=== PATIENT | male | born 1940 | race Hispanic/Latino ===

== ENCOUNTER 2017-05-03 10:51 | Inpatient (IN) | payer MEDICARE, BC ==
[~2017-05-03] VITALS: Ht 185.4 cm; Wt 95.0 kg
[~2017-05-03 10:51] MED LIST: DESMOPRESSIN A0.1 MG PO; FEROSUL325 MG PO; FOLBIC TABLET1 EACH PO; GABAPENTIN100 MG PO; HYDRALAZINE HCL25 MG PO; LISINOPRIL40 MG PO; LOPID600 MG PO; METOPROLOL TART50 MG PO; NAMENDA10 MG PO; OLANZAPINE20 MG PO; OMEPRAZOLE20 MG PO
[2017-05-03 16:17] LABS: BASOPHILS % 0.5 % (0.0-1.0); EOSINOPHILS # (AUTO) 0.4 (0.0-0.4); EOSINOPHILS % 5.1 % (0.0-6.0); HEMATOCRIT 28.7 % (38.2-49.6); HEMOGLOBIN 10.3 g/dL (14.0-18.0); LYMPHOCYTES # (AUTO) 1.9 (1.0-3.2); LYMPHOCYTES % 25.6 % (18.0-39.1); MEAN CORPUSCULAR HEMOGLOBIN 32.7 pg (28-32); MEAN CORPUSCULAR HGB CONC 35.9 g/dL (31-35); MEAN CORPUSCULAR VOLUME 91.1 fL (81-99); MONOCYTES # (AUTO) 0.9 (0.2-0.8); MONOCYTES % 11.9 % (4.4-11.3); NEUTROPHILS # (AUTO) 4.2 (2.1-6.9); NEUTROPHILS % 56.4 % (38.7-80.0); PLATELET COUNT 173 x10e3/uL (140-360); RED BLOOD COUNT 3.15 x10e6/uL (4.3-5.7); RED CELL DISTRIBUTION WIDTH 12.8 % (11.7-14.4)
[2017-05-03 16:41] LABS: CALCIUM 9.6 mg/dL (8.4-10.2); CREATININE, SERUM 1.31 mg/dL (0.72-1.25); MAGNESIUM 1.7 MG/DL (1.3-2.1)
[2017-05-03 18:42] LABS: BILIRUBIN,URINE NEGATIVE (NEGATIVE); CLARITY,URINE CLEAR (CLEAR); COLOR,URINE YELLOW (YELLOW); KETONES,URINE NEGATIVE (NEGATIVE); LEUKOCYTE ESTERASE ,URINE NEGATIVE (NEGATIVE); NITRITE,URINE NEGATIVE (NEGATIVE); PROTEIN,URINE DIPSTICK NEGATIVE (NEGATIVE); URINE UROBILINOGEN 0.2 mg/dL (0.2 - 1)
[2017-05-03 18:47] LABS: MUCUS,URINE MODERATE (RARE); RBC,URINE 0-5 /HPF (0-5); WBC,URINE (MAN) 0-5 /HPF (0-5)
[2017-05-03] MEDS ORDERED: ONDANSETRON HCL INJ 2 MG/ML VIAL IV PRN (20:00)
[2017-05-03] MEDS: SODIUM CHLORIDE 0.9% 1000ML 1,000 ML IV SCH (22:00)
[2017-05-04] VITALS (7 sets, daily range): BP systolic 104–151; BP diastolic 61–76
[2017-05-04] MEDS ORDERED: VITAMIN D1000 UNI1 PO (05:19)
[2017-05-04] MEDS ORDERED: VITAMIN B-121000 MC2 PO (05:19)
[2017-05-04 07:15] LABS: BASOPHILS % 0.5 % (0.0-1.0); EOSINOPHILS # (AUTO) 0.4 (0.0-0.4); EOSINOPHILS % 5.6 % (0.0-6.0); HEMATOCRIT 28.1 % (38.2-49.6); HEMOGLOBIN 9.9 g/dL (14.0-18.0); LYMPHOCYTES # (AUTO) 1.3 (1.0-3.2); LYMPHOCYTES % 19.6 % (18.0-39.1); MEAN CORPUSCULAR HEMOGLOBIN 32.6 pg (28-32); MEAN CORPUSCULAR HGB CONC 35.2 g/dL (31-35); MEAN CORPUSCULAR VOLUME 92.4 fL (81-99); MONOCYTES # (AUTO) 0.8 (0.2-0.8); MONOCYTES % 12.4 % (4.4-11.3); NEUTROPHILS # (AUTO) 3.9 (2.1-6.9); NEUTROPHILS % 61.3 % (38.7-80.0); PLATELET COUNT 150 x10e3/uL (140-360); RED BLOOD COUNT 3.04 x10e6/uL (4.3-5.7); RED CELL DISTRIBUTION WIDTH 13.1 % (11.7-14.4)
[2017-05-04 07:44] LABS: ALBUMIN 3.5 g/dL (3.5-5.0); ALBUMIN/GLOBULIN RATIO 0.9 (0.8-2.0); ANION GAP 11.4 mmol/L (8-16); CREATININE, SERUM 1.27 mg/dL (0.72-1.25); POTASSIUM 4.4 mmol/L (3.5-5.1)
[2017-05-04] MEDS: HYDRALAZINE HCL 25 MG TAB PO SCH ×2 (09:00→17:00)
[2017-05-04] MEDS: LISINOPRIL 20 MG TAB PO SCH (09:00)
[2017-05-04] MEDS: GEMFIBROZIL 600 MG TAB PO SCH ×2 (09:00→17:00)
[2017-05-04] MEDS: PANTOPRAZOLE SOD 40 MG TABEC PO SCH ×2 (09:00→17:00)
[2017-05-04] MEDS: MEMANTINE 10 MG TAB PO SCH ×2 (09:00→17:00)
[2017-05-04] MEDS: GABAPENTIN 100 MG CAP PO SCH (09:00)
[2017-05-04] MEDS: METOPROLOL TARTRATE 50 MG TAB PO SCH (09:00)
[2017-05-04] MEDS: SODIUM CHLORIDE 0.9% 1000ML 1,000 ML IV SCH (09:38)
[2017-05-05] VITALS (7 sets, daily range): BP systolic 121–146; BP diastolic 71–79
[2017-05-05] MEDS ORDERED: DDAVP 0.0110 MCG/0.1 (04:29)
[2017-05-05] MEDS: GABAPENTIN 100 MG CAP PO SCH (08:30)
[2017-05-05] MEDS: PANTOPRAZOLE SOD 40 MG TABEC PO SCH ×2 (08:30→17:00)
[2017-05-05] MEDS: HYDRALAZINE HCL 25 MG TAB PO SCH ×2 (08:30→17:00)
[2017-05-05] MEDS: LISINOPRIL 20 MG TAB PO SCH (08:30)
[2017-05-05] MEDS: GEMFIBROZIL 600 MG TAB PO SCH ×2 (08:35→17:00)
[2017-05-05] MEDS: METOPROLOL TARTRATE 50 MG TAB PO SCH (08:35)
[2017-05-05] MEDS: MEMANTINE 10 MG TAB PO SCH ×2 (08:35→17:00)
[2017-05-05 09:02] LABS: BASOPHILS % 0.5 % (0.0-1.0); EOSINOPHILS # (AUTO) 0.3 (0.0-0.4); HEMATOCRIT 29.7 % (38.2-49.6); HEMOGLOBIN 10.3 g/dL (14.0-18.0); LYMPHOCYTES # (AUTO) 1.1 (1.0-3.2); LYMPHOCYTES % 16.6 % (18.0-39.1); MEAN CORPUSCULAR HEMOGLOBIN 32.8 pg (28-32); MEAN CORPUSCULAR HGB CONC 34.7 g/dL (31-35); MEAN CORPUSCULAR VOLUME 94.6 fL (81-99); MONOCYTES # (AUTO) 0.5 (0.2-0.8); MONOCYTES % 8.1 % (4.4-11.3); NEUTROPHILS # (AUTO) 4.6 (2.1-6.9); NEUTROPHILS % 69.3 % (38.7-80.0); PLATELET COUNT 158 x10e3/uL (140-360); RED BLOOD COUNT 3.14 x10e6/uL (4.3-5.7); RED CELL DISTRIBUTION WIDTH 13.4 % (11.7-14.4)
[2017-05-05 09:28] LABS: ALANINE AMINOTRANSFERASE 19 IU/L (0-55); ALBUMIN 3.7 g/dL (3.5-5.0); ALBUMIN/GLOBULIN RATIO 0.9 (0.8-2.0); ALKALINE PHOSPHATASE 93 IU/L (40-150); ANION GAP 13.3 mmol/L (8-16); BLOOD UREA NITROGEN 23 mg/dL (7-26); BUN/CREATININE RATIO 16 (6-25); CALCIUM 9.7 mg/dL (8.4-10.2); CARBON DIOXIDE 26 mmol/L (22-29); CHLORIDE 100 mmol/L (98-107); CREATININE, SERUM 1.45 mg/dL (0.72-1.25); EST GLOMERULAR FILTRATION RATE 47 ML/MIN (60-); GLUCOSE 130 mg/dL (74-118); POTASSIUM 4.3 mmol/L (3.5-5.1); SODIUM 135 mmol/L (136-145)
[2017-05-06 01:28] VITALS: BP 129/78
[2017-05-06 04:00] VITALS: BP 158/87
[2017-05-06 08:30] VITALS: BP 137/76
[2017-05-06] MEDS: HYDRALAZINE HCL 25 MG TAB PO SCH (09:00)
[2017-05-06] MEDS: LISINOPRIL 20 MG TAB PO SCH (09:00)
[2017-05-06] MEDS: METOPROLOL TARTRATE 50 MG TAB PO SCH (09:00)
[2017-05-06] MEDS: MEMANTINE 10 MG TAB PO SCH (09:00)
[2017-05-06] MEDS: GEMFIBROZIL 600 MG TAB PO SCH (09:00)
[2017-05-06] MEDS: GABAPENTIN 100 MG CAP PO SCH (09:00)
[2017-05-06] MEDS: PANTOPRAZOLE SOD 40 MG TABEC PO SCH (09:00)
[2017-05-06 09:54] LABS: ANION GAP 14.4 mmol/L (8-16); CALCIUM 9.4 mg/dL (8.4-10.2); CREATININE, SERUM 1.7 mg/dL (0.72-1.25); POTASSIUM 4.4 mmol/L (3.5-5.1)
== END 2017-05-06 10:45 | disposition home or self-care (01) | DRG 645 ==
LOC: ER 10:51 → ERHOLD 21:20 → MED/SURG3 22:21
PROVIDERS: ADMIT Family Medicine; ATTEND Family Medicine
DX: E22.2 Syndrome of inappropriate secretion of antidiuretic hormone (principal); E11.40 Type 2 diabetes mellitus with diabetic neuropathy, unspecified; F03.90 Unspecified dementia, unspecified severity, without behavioral disturbance, psychotic disturbance, mood disturbance, and anxiety; D64.9 Anemia, unspecified; I12.9 Hypertensive chronic kidney disease with stage 1 through stage 4 chronic kidney disease, or unspecified chronic kidney disease; N18.3 Chronic kidney disease, stage 3 (moderate); D63.8 Anemia in other chronic diseases classified elsewhere; E23.2 Diabetes insipidus
CPT/HCPCS: 36415; 80048; 80053; 81001; 83735; 84100; 84443; 85025; 87086; 93005; 97139; 99284; J7030

== ENCOUNTER 2018-09-16 17:31 | Observation (INO) | payer MEDICARE, BC ==
[~2018-09-16] VITALS: Ht 185.4 cm; Wt 88.6 kg
[~2018-09-16 17:31] MED LIST changes: +DDAVP 0.0110 MCG/0.1; +VITAMIN B-121000 MC2 PO; +VITAMIN D1000 UNI1 PO
--- OUTSIDE RECORDS SUMMARY | 2018-09-16 17:36 | XMS REPORT ---
Author Author [facility] Address Unknown Phone Unavailable Care Team Providers Care Club Waiter/Waitress Name Role Phone [employer] Unavailable Unavailable Problems This patient has no known problems. Allergies, Adverse Reactions, Alerts This patient has no known allergies or adverse reactions. Medications This patient has no known medications. Results Test Description Test Time Test Comments Text Results Atomic Results Result Comments MRI SPINE CERVICAL WO [place] [address] Patient Name: AYO RUDOLPH MR #: [id number] : 1940 Age/Sex: 76/M Req #: [id number] Adm Physician: Ordered by: MARCUS BOYLE MD Report #: [id number] Location: MRI Room/Bed: Procedure: [id number] MRI/MRI SPINE CERVICAL WO Exam Date: Exam Time: REPORT STATUS: Signed EXAMINATION: MRI of the cervical spine without contrast HISTORY: Neck pain, cervical radiculopathy for the last week COMPARISON: None available TECHNIQUE: Sagittal T1, T2, STIR; axial T2, gradient echo. FINDINGS: Curvature: Normal lordosis. Vertebrae: No evidence of neoplasm, infection, or fracture. Foramen magnum: No mass, Chiari malformation, or basilar invagination. Spinal Cord: Normal size and signal intensity. Soft Tissues: Unremarkable. Degenerative changes: C1-C2: Unremarkable. C2-C3: Bilateral facet arthroses. No canal or foraminal stenoses. C3-C4: Asymmetric to the right small disc osteophyte, mild uncovertebral and facet arthrosis. Severe right foraminal stenosis. Compression upon the exiting right C4 nerve root cannot be excluded C4-C5: Small asym metrical right disc osteophyte, mild uncovertebral facet arthrosis. Moderate right foraminal stenoses. C5-C6: Small disc osteophyte, mild bilateral uncovertebral and facet arthrosis. Moderate bilateral foraminal stenosis. C6-C7: Disc osteophyte complex formation, bilateral uncovertebral and facet arthrosis. Moderate right and mild left foraminal stenoses. C7- T1: Unremarkable. IMPRESSION: 1. Mild multilevel spondylosis without spinal canal stenosis. 2. Severe degenerative foraminal stenosis on the right at C3-4 and moderate on the right at C4-C5 and C6-7 as well as bilaterally at C5-6. 3. Normal cervical spinal cord. Signed by: Dr. Ivan Szymanski M.D. on 01/24/2017 7:08 AM Dictated By: IVAN SZYMANSKI MD 7 Transcribed By: CELINE on 01/24/17707 COPY TO: MARCUS BOYLE MD
[2018-09-16] MEDS ORDERED: SODIUM CHLORIDE 0.9% 1000ML 1,000 ML IV SCH (18:30)
--- NOTE | 2018-09-16 18:49 | NUR ---
REPORT TO SENDY COYLE ALL QUESTIONS ANSWERED
[2018-09-16] MEDS: SODIUM CHLORIDE 0.9% 1000ML 1,000 ML IV SCH (19:27)
[2018-09-16] MEDS ORDERED: ONDANSETRON HCL INJ 2MG/ML 2ML 2 MG/ML VIAL IV PRN (19:30)
[2018-09-16 21:25] VITALS: BP 177/97
[2018-09-16] MEDS: HYDRALAZINE HCL 20 MG/ML VIAL IV PRN (22:02)
[2018-09-16 22:39] VITALS: BP 177/94
[2018-09-17] VITALS (7 sets, daily range): BP systolic 104–168; BP diastolic 63–80
[2018-09-17] MEDS: SODIUM CHLORIDE 0.9% 1000ML 1,000 ML IV SCH ×3 (04:26→20:17)
[2018-09-17] MEDS ORDERED: OLANZAPINE 20 MG PO SCH (06:30)
--- NOTE | 2018-09-17 07:08 | Diagnostic Imaging Report ---
Exam: Abdominal film Clinical History: Abdominal pain Comparison: None. DISCUSSION: The bowel gas pattern shows no dilated, air-filled loops of bowel. Gas and fecal material are noted throughout the large bowel. Round calcification projecting over the right lobe of the liver likely represents a calcified granuloma. Pelvic phleboliths. No suspicious calcifications project over the renal shadows or expected ureteral courses. Regional skeletal structures are intact with mild extra scoliotic curvature centered at L2-L3. Degenerative disc changes of the lumbar spine. Metallic clips project over the low pelvis. IMPRESSION: Nonobstructive bowel gas pattern. Signed by: Dr. Jake Guerrero M.D. on 09/17/2018 7:05 AM
--- NOTE | 2018-09-17 07:22 | Consultation ---
DATE OF CONSULTATION: 09/17/2018 HISTORY OF PRESENT ILLNESS: This is an 78-year-old gentleman, who supposedly was diagnosed with [facility]chalasia at the [facility], presented to the hospital because of difficulty swallowing. He apparently was eating some hamburger on Saturday and has been having some problem since then. He was able to toe up. He was able to eat Jell-O yesterday. He is not drooling. His other medical problem is supposedly again history of hypertension, history of atrial fibrillation, history of prostate cancer, history of schizophrenia, history of knee surgery, and apparently was diagnosed with achalasia recently. ALLERGIES: NONE. SOCIAL HISTORY: Denies any alcohol use. CURRENT MEDICATIONS: He is on olanzapine, lisinopril, desmopressin, is on pantoprazole, Lopressor, Namenda, Alprazolam, Lopid, and gabapentin. FAMILY HISTORY: Reviewed. REVIEW OF SYSTEMS: At this point, he denies any chest pain. Denies any shortness of breath. Denies any dysphagia or odynophagia. Does have dysphagia . Denies any nausea or vomiting. Denies any weight loss. Denies any abdominal pain or any kind of rectal bleeding. PHYSICAL EXAMINATION: GENERAL: The patient is awake, alert, appears to be stable . VITAL SIGNS: Afebrile currently with stable vital signs. HEAD, EYES, EARS, NOSE, AND THROAT: Normocephalic, atraumatic. Sclerae are anicteric. NECK: Supple. HEART: Sounds regular. ABDOMEN: Soft. There is no tenderness. SPINE: Nontender. EXTREMITIES: No cyanosis. No clubbing. LABORATORY VALUES: CBC was normal except hemoglobin of 11 and hematocrit of 33, and then CMP was normal except a BUN of 28 and creatinine is 1.4. IMPRESSION: 1. Dysphagia. The patient is supposed to have a history of achalasia, was diagnosed at the [facility]. 2. History of hypertension. 3. Atrial fibrillation. RECOMMENDATION: The patient is to keep n.p.o. for now. We will try to do an EGD either today or tomorrow with dilation and possibly Botox injections. We will try to get the results of the evaluations from the [facility]. MD INOCENTE Gilliam/MARTÍN /[id number] cc: Candelario Jimenez MD
[2018-09-17] MEDS: PANTOPRAZOLE SOD 40 MG TABEC PO SCH (07:30)
--- NOTE | 2018-09-17 07:31 | NUR ---
RECEIVED PATIENT AWAKE RESTING IN BED. NO SIGNS OF DISTRESS. BED LOW, WHEELS LOCKED, SIDE RAILS X2, CALL LIGHT IN REACH WILL CONTINUE TO MONITOR.
--- NOTE | 2018-09-17 07:47 | History and Physical ---
This is an 78-year-old gentleman with a history of achalasia, comes in with inability to swallow and has dysphagia to food including liquid and solids. HISTORY OF PRESENTING ILLNESS: Mr. Randell Barrios with a history of achalasia cardia, who has been treated by the [facility], has been seen by Dr. Rivas. The patient had been scoped by the [facility] and was scheduled for surgery, but apparently according to his primary care physician at the [facility], the surgery was canceled secondary to high risk. The patient continued to do the same after eating hamburger and the patient tried to push his food down with water and coffee, however, was not successful. The patient had signs of dehydration and also nausea and the patient came to the emergency room, was found to have dehydration, admitted to the hospital for dehydration and achalasia worsening. PAST MEDICAL HISTORY: 1. History of prostate cancer. 2. History of schizophrenia. 3. History of hypertension. 4. History of diabetes insipidus. PAST SURGICAL HISTORY: History of bilateral knee replacement and multiple scopes. SOCIAL HISTORY: No EtOH. No IV drug abuse and lives by himself and daughter lives very close by. REVIEW OF SYSTEMS: Negative for chest pain. Positive nausea and vomiting. No diarrhea. No constipation. No rectal bleeding. No hematochezia. No hematemesis. No diplopia. No blurry vision. No other neurological signs. The patient also complains of extreme fatigue for the last 2 days. MEDICINES: He takes at home are cholecalciferol 1000 units a day, cyanocobalamin B12 once a day, Desmopressin DDAVP 0.1 nasal sprays, desmopressin acetate 0.1 mg tablet daily, gabapentin 600 mg b.i.d., hydralazine 25 mg b.i.d., gemfibrozil 600 mg b.i.d., lisinopril 40 mg daily, Namenda 10 mg daily, metoprolol 50 mg daily, olanzapine 20 mg, and omeprazole 20 mg twice a day. PHYSICAL EXAMINATION: GENERAL: The patient is alert and oriented x3. VITAL SIGNS: Temperature 96.2, pulse of 87, respirations of 20, blood pressure is 143/63. HEENT: Normocephalic, atraumatic. The patient is edentulous. CVS: S1, S2 normal. Regular rate and rhythm. ABDOMEN: Nontender, nondistended. Bowel sounds markedly decreased. EXTREMITIES: No clubbing, no cyanosis, no edema. IMAGING: The patient has no imaging studies at this time. LABORATORY VALUES: From ER shows elevated creatinine. White count is 8.1, hemoglobin of 11.0, hematocrit of 33.0, platelet count is 175. Sodium 136, potassium of 4.2, chloride 94, glucose 98, BUN is 28 and 1.4 creatinine. T bili was 0.8. The patient's drug screen is negative and urine screen was negative. ASSESSMENT: 1. Achalasia cardia dysphagia. The patient has a consult with Dr. Rivas, we will probably scope him. 2. Dehydration. The patient is on IV fluids. We will continue monitoring his lytes. 3. History of anemia. We will continue to monitor his H and H. 4. History of diabetes insipidus. We will continue back on his desmopressin. 5. History of atrial fibrillation. We will continue monitoring the patient. The patient is currently not on anticoagulation. We will put him on Lovenox at this time for deep venous thrombosis prophylaxis. Further recommendation per clinical course. We will continue to monitor the patient. PLAN: To possibly do EGD and we will do KUB at this time too. Further recommendation per clinical course. MD SANDI Saab/MODL /[id number]
[2018-09-17] MEDS: MEMANTINE 10 MG TAB PO SCH ×2 (08:33→16:27)
[2018-09-17] MEDS: LISINOPRIL 20 MG TAB PO SCH (08:33)
[2018-09-17] MEDS: GEMFIBROZIL 600 MG TAB PO SCH ×2 (08:33→16:27)
[2018-09-17] MEDS: METOPROLOL TARTRATE 50 MG TAB PO SCH (08:33)
[2018-09-17] MEDS: HYDRALAZINE HCL 25 MG TAB PO SCH ×2 (08:33→16:27)
[2018-09-17] MEDS: GABAPENTIN 100 MG CAP PO SCH (08:33)
--- NOTE | 2018-09-17 15:05 | NUR ---
Nutrition Screen Note RD Recommendation for Physician: -When PO is feasible, rec ADAT to cardiac diet -If PO is not feasible, consider alternative nutrition Plan of Care: RD following, monitoring for tolerance and adequacy Nutrition reason for involvement: Nutrition Risk Trigger MST Primary Diagnose(s): dysphagia and dehydration PMH: achalasia, prostate cancer, schizophrenia, HTN, Afib Ht: 73in Wt: 195.25lb BMI: 25.8kg/m2 IBW: 184lb RD Assessment: (09/17) Chart reviewed. Labs and meds reviewed. 78yo M, who was admitted for dysphagia. Pt was dx with achalasia at the [facility] this year but no surgical intervention due to high risk. Visited pt in the room. Pt reported swallowing difficulty with foods and fluids, started 3 days ago. Pt hasnt eaten anything for the last 3 days. No complains of nausea or vomiting. Pt has his denture on bedside. Pt denied any recent weight loss with reported UBW ~195lbs. EGD pending. Will continue to monitor and follow. Current Diet: NPO Malnutrition Evaluation (09/17) The patient does not meet criteria for a specified degree of malnutrition at this time. Will re-evaluate at follow-up as appropriate. Diet Education Needs Assessment: Diet education not indicated. Nutrition Care Level: low Signed: Sigrid Mg, MS, RD, LD
[2018-09-17] MEDS: ENOXAPARIN SOD INJ 40 MG/0.4 ML SYR SC SCH (16:40)
--- NOTE | 2018-09-17 19:10 | NUR ---
received patient aaox3, stable condition, resting in bed. family member at bedside. no needs voiced. bed locked and in lowest position, call light within easy reach.
[2018-09-17] MEDS: OLANZAPINE 5 MG TAB PO SCH (19:29)
[2018-09-17] MEDS: DESMOPRESSIN ACETATE 0.2 MG TABLET PO SCH (19:29)
--- NOTE | 2018-09-17 23:30 | NUR ---
patient c/o chest tightness. EKG per protocol. called placed to Dr. Jimenez for orders, awaiting call back. patient is now denying anymore chest pain, discomfort, or tightness. will continue to monitor.
--- NOTE | 2018-09-17 23:52 | NUR ---
report given to oncoming nurse for continuity of care.
[2018-09-18] VITALS (10 sets, daily range): BP systolic 115–172; BP diastolic 66–89
[2018-09-18] MEDS: SODIUM CHLORIDE 0.9% 1000ML 1,000 ML IV SCH ×3 (00:33→19:00)
--- NOTE | 2018-09-18 00:34 | NUR ---
Patient denies chest pain at this time.
[2018-09-18 01:32] LABS: CREATINE KINASE MB 2.9 ng/mL (0-5.0)
[2018-09-18 05:44] LABS: BASOPHILS % 0.4 % (0.0-1.0); EOSINOPHILS % 0.5 % (0.0-6.0); HEMATOCRIT 31.2 % (38.2-49.6); HEMOGLOBIN 10.3 g/dL (14.0-18.0); LYMPHOCYTES % 12.7 % (18.0-39.1); MEAN CORPUSCULAR HEMOGLOBIN 31.9 pg (28-32); MEAN CORPUSCULAR VOLUME 96.6 fL (81-99); MONOCYTES # (AUTO) 0.8 (0.2-0.8); MONOCYTES % 10.1 % (4.4-11.3); NEUTROPHILS # (AUTO) 5.8 (2.1-6.9); NEUTROPHILS % 75.9 % (38.7-80.0); PLATELET COUNT 146 x10e3/uL (140-360); RED BLOOD COUNT 3.23 x10e6/uL (4.3-5.7); RED CELL DISTRIBUTION WIDTH 13.3 % (11.7-14.4)
[2018-09-18 05:52] LABS: INR 1.06; PROTHROMBIN TIME 14.3 seconds (11.9-14.5)
[2018-09-18 06:02] LABS: ALBUMIN 3.6 g/dL (3.5-5.0); ANION GAP 14.2 mmol/L (8-16); CALCIUM 9.4 mg/dL (8.4-10.2); CREATININE, SERUM 1.2 mg/dL (0.72-1.25); MAGNESIUM 2.1 MG/DL (1.3-2.1); POTASSIUM 4.2 mmol/L (3.5-5.1)
--- NOTE | 2018-09-18 06:13 | NUR ---
Dr. Jimenez made aware of patient's overnight chest pain episode.
--- NOTE | 2018-09-18 06:58 | Progress Note ---
DATE: SUBJECTIVE: The patient came in with dysphagia. The patient is due for EGD. The patient had some chest pain and symptoms of acute coronary syndrome. The patient's EKG was done which was normal and also troponins have been trended to be normal. The patient did have some food before that and the chest pain was substernal and related to food according to the patient. OBJECTIVE: VITAL SIGNS: Temperature 97.5, pulse of 84, respirations of 20, and blood pressure is 144/68. HEENT: Normocephalic and atraumatic. Pupils are reactive to light and accommodation. CVS: S1 and S2 normal. Regular rate and rhythm. ABDOMEN: Tender in the periumbilical area, also in epigastric area. EXTREMITIES: No clubbing, no cyanosis and/or no edema. LABORATORY VALUES: White count is 7.69, hemoglobin 10.3, and hematocrit 31.2. Chemistry; sodium of 141, potassium of 4.2, BUN 20, and creatinine of 1.30. As noted, troponin was 0.063. ASSESSMENT: 1. Achalasia, dysphagia. 2. Dehydration. 3. History of anemia. 4. History of diabetes insipidus and history of atrial fibrillation. PLAN: 1. To do EGD today with Dr. Rivas. 2. Dehydration has resolved. 3. Anemia. We will continue to monitor the patient. 4. For diabetes insipidus, we will continue back on desmopressin. Further recommendation per clinical course and possible discharge depending on the EGD result. MD SANDI Saab/MODL /[id number]
[2018-09-18] MEDS: PANTOPRAZOLE SOD 40 MG TABEC PO SCH (07:30)
--- NOTE | 2018-09-18 07:46 | NUR ---
RECEIVED PATIENT RESTING IN BED NO SIGNS OF DISTRESS. BED LOW, WHEELS LOCKED, SIDE RAILS X2. CALL LIGHT IN REACH. WILL CONTINUE TO MONITOR PATIENT.
[2018-09-18] MEDS: HYDRALAZINE HCL 25 MG TAB PO SCH ×2 (08:20→17:02)
[2018-09-18] MEDS: LISINOPRIL 20 MG TAB PO SCH (08:21)
[2018-09-18] MEDS: GABAPENTIN 100 MG CAP PO SCH (08:21)
[2018-09-18] MEDS: MEMANTINE 10 MG TAB PO SCH ×2 (08:21→17:02)
[2018-09-18] MEDS: METOPROLOL TARTRATE 50 MG TAB PO SCH (08:21)
[2018-09-18] MEDS: GEMFIBROZIL 600 MG TAB PO SCH ×2 (08:21→17:02)
[2018-09-18] MEDS: ENOXAPARIN SOD INJ 40 MG/0.4 ML SYR SC SCH (08:32)
--- NOTE | 2018-09-18 09:05 | NUR ---
PATIENT A/O X3, EVEN RESPIRATIONS UNLABORED. BOWEL SOUNDS ACTIVE, SKIN INTACT, NO EDEMA. PATIENT AMBULATORY WITH WALKER AND STANDBY ASSIST. NS @ 125 CC/HR LEFT WRIST 20 GAUGE IV. PATIENT NPO FOR EGD THIS AFTERNOON. VITAL SIGNS STABLE. CALL LIGHT IN REACH, WILL CONTINUE TO MONITOR PATIENT.
--- NOTE | 2018-09-18 13:19 | NUR ---
PATIENT LEFT FOR EGD AT THIS TIME VIA BED.
[2018-09-18] MEDS ORDERED: BOTULINUM TOXIN TYPE A 100 UNIT VIAL IM ONE (13:52)
--- NOTE | 2018-09-18 14:58 | NUR ---
PATIENT BACK FROM EGD AT THIS TIME. BED LOW, WHEELS LOCKED, SIDE RAILS X2. CALL LIGHT IN REACH. WILL CONTINUE TO MONITOR PATIENT.
[2018-09-18] MEDS ORDERED: PROPOFOL IV EMULSION 10 MG/ML 20 ML VIAL ONE (18:30)
[2018-09-18] MEDS: HYDRALAZINE HCL 20 MG/ML VIAL IV PRN (21:34)
[2018-09-18] MEDS: DESMOPRESSIN ACETATE 0.2 MG TABLET PO SCH (21:34)
[2018-09-18] MEDS: OLANZAPINE 5 MG TAB PO SCH (21:34)
[2018-09-19] MEDS: SODIUM CHLORIDE 0.9% 1000ML 1,000 ML IV SCH ×2 (03:17→11:17)
[2018-09-19 04:12] VITALS: BP 137/82
--- NOTE | 2018-09-19 05:46 | NUR ---
Dr. Evelyn brenner. advanced diet for breakfast.
--- NOTE | 2018-09-19 07:23 | Progress Note ---
DATE: SUBJECTIVE: The patient is an 78-year-old gentleman with a history of achalasia cardia. The patient had endoscopy yesterday. Botox was given. The patient's dysphagia is better. The patient is able to swallow food and also swallow liquids. The patient did have some symptoms of confusion this morning. Currently, the patient is asymptomatic. PHYSICAL EXAMINATION: VITAL SIGNS: Temperature is 98.1, pulse of 112, respirations of 20, blood pressure is 137/82, and pulse oximetry of 97% on room air. HEENT: Normocephalic and atraumatic. CVS: S1, S2 normal. Regular rate and rhythm. ABDOMEN: Nontender and nondistended. EXTREMITIES: No clubbing, no cyanosis, no edema. LABORATORY VALUES: All within normal limits. Coags normal. ASSESSMENT: 1. Achalasia cardia, status post dilatation and Botox injection. 2. Dehydration, resolved. 3. Anemia. Continue monitoring the patient. 4. Diabetes insipidus. Continue desmopressin. 5. Confusion, status post surgery. 6. Delirium/encephalopathy. PLAN: Continue the patient physical therapy today and once the patient is able to walk and continued to be ambulatory, the patient can be discharged home. As I mentioned to the daughter and the patient will be continued to be monitored. Addendum: The patient might need a myotomy later if the dilatation did not work. MD FERNANDO SaabJ/MODL /[id number]
[2018-09-19] MEDS: PANTOPRAZOLE SOD 40 MG TABEC PO SCH (07:30)
--- NOTE | 2018-09-19 07:31 | NUR ---
REPORT GIVEN TO ONCOMING NURSE. PATIENT IN STABLE CONDITION. CALL LIGHT WITHIN REACH.
[2018-09-19 08:33] VITALS: BP 138/84
[2018-09-19] MEDS: GABAPENTIN 100 MG CAP PO SCH (09:00)
[2018-09-19] MEDS: LISINOPRIL 20 MG TAB PO SCH (09:00)
[2018-09-19] MEDS: MEMANTINE 10 MG TAB PO SCH (10:00)
[2018-09-19] MEDS: HYDRALAZINE HCL 25 MG TAB PO SCH (10:00)
[2018-09-19] MEDS: GEMFIBROZIL 600 MG TAB PO SCH (10:00)
[2018-09-19] MEDS: METOPROLOL TARTRATE 50 MG TAB PO SCH (10:00)
[2018-09-19] MEDS: ENOXAPARIN SOD INJ 40 MG/0.4 ML SYR SC SCH (10:00)
--- NOTE | 2018-09-19 10:00 | NUR ---
HOME MEDICATIONS CLARIFIED WITH PT AND FAMILY, EMAR AND HOME MEDICATION LIST CLARIFIED IN COMPUTER
--- NOTE | 2018-09-19 10:22 | NUR ---
WITH STANDBY ASSIST OF PCT AND USE OF WALKER, PT OOB TO BR, CALL STRING WITHIN REACH
[2018-09-19 11:14] VITALS: BP 138/84
[2018-09-19 12:01] VITALS: BP 133/69
[2018-09-19] MEDS ORDERED: METHOCARBAMOL 500 MG TAB PO NR (12:45)
--- NOTE | 2018-09-19 13:30 | NUR ---
CM SPOKE TO PATIENT AT BEDSIDE. PATIENT INFORMED WITH PHYSICAL THERAPY RECOMMENDATIONS FOR POSSIBLE HOME HEALTH AT HOME. PATIENT STATES HE IS ABLE TO WALK AT HOME AND REFUSED HOME HEALTH SERVICES AT THIS TIME. PATIENT IS ENCOURAGED TO CONTACT HIS PRIMARY CARE PHYSICIAN IF HE GOES HOME AND FEELS HE CAN BENEFIT FROM PHYSICAL THERAPY SERVICES. BEDSIDE NURSE GERRI UPDATED ON PATIENT REFUSAL FOR HOME HEALTH AT THIS TIME.
[2018-09-19 16:28] VITALS: BP 139/80
--- NOTE | 2018-09-19 18:53 | NUR ---
DISCHARGE INSTRUCTIONS REVIEWED WITH PT, WHEELED OFF UNIT FOR DISCHARGE, NO CHANGE IN CONDITION
[2018-09-19] MEDS ORDERED: MEMANTINE 10 MG TAB PO SCH (21:00)
[2018-09-19] MEDS ORDERED: GEMFIBROZIL 600 MG TAB PO SCH (21:00)
[2018-09-19] MEDS ORDERED: HYDRALAZINE HCL 25 MG TAB PO SCH (21:00)
[2018-09-19] MEDS ORDERED: METOPROLOL TARTRATE 50 MG TAB PO SCH (21:00)
== END 2018-09-19 19:20 | disposition home or self-care (01) ==
LOC: FSED 17:31 → ERHOLD 19:18 → MED/SURG 20:34
PROVIDERS: ADMIT Family Medicine; ATTEND Family Medicine
DX: K22.0 Achalasia of cardia (principal); R13.10 Dysphagia, unspecified; E86.0 Dehydration; Z88.5 Allergy status to narcotic agent; I10 Essential (primary) hypertension; I48.91 Unspecified atrial fibrillation; F20.9 Schizophrenia, unspecified; Z85.46 Personal history of malignant neoplasm of prostate; E23.2 Diabetes insipidus; K44.9 Diaphragmatic hernia without obstruction or gangrene; D64.9 Anemia, unspecified; R07.89 Other chest pain; G93.40 Encephalopathy, unspecified
CPT/HCPCS: 36415; 43236; 43239; 43450; 74018; 80053; 82550; 82553; 83735; 84484; 85025; 85610; 88305; 88312; 93005 ×2; 97116; 97161; 97530; 99284; G0378 ×4; J0360 ×2; J0587; J1650 ×3; J2405 ×2; J2704; J7030 ×4

== ENCOUNTER 2019-02-25 20:37 | Emergency (ER) | payer MEDICARE, BC ==
[~2019-02-25] VITALS: Ht 185.4 cm; Wt 90.3 kg
[2019-02-25] MEDS ORDERED: GLUCAGON FOR INJ 1 MG VIAL IV ONE (21:00)
[2019-02-25 21:14] LABS: BASOPHILS % 0.4 % (0.0-1.0); EOSINOPHILS # (AUTO) 0.4 (0.0-0.4); HEMATOCRIT 33.1 % (38.2-49.6); HEMOGLOBIN 10.8 g/dL (14.0-18.0); LYMPHOCYTES # (AUTO) 1.1 (1.0-3.2); LYMPHOCYTES % 16.1 % (18.0-39.1); MEAN CORPUSCULAR HEMOGLOBIN 31.3 pg (28-32); MEAN CORPUSCULAR HGB CONC 32.6 g/dL (31-35); MEAN CORPUSCULAR VOLUME 95.9 fL (81-99); MONOCYTES # (AUTO) 0.8 (0.2-0.8); MONOCYTES % 12.1 % (4.4-11.3); NEUTROPHILS # (AUTO) 4.6 (2.1-6.9); NEUTROPHILS % 66.1 % (38.7-80.0); PLATELET COUNT 193 x10e3/uL (140-360); RED BLOOD COUNT 3.45 x10e6/uL (4.3-5.7); RED CELL DISTRIBUTION WIDTH 13.4 % (11.7-14.4)
[2019-02-25 21:30] LABS: ALANINE AMINOTRANSFERASE 11 IU/L (0-55); ALBUMIN 3.9 g/dL (3.5-5.0); ALKALINE PHOSPHATASE 97 IU/L (40-150); ANION GAP 18.2 mmol/L (8-16); BLOOD UREA NITROGEN 23 mg/dL (7-26); BUN/CREATININE RATIO 14 (6-25); CALCIUM 10.4 mg/dL (8.4-10.2); CARBON DIOXIDE 24 mmol/L (22-29); CHLORIDE 94 mmol/L (98-107); CREATINE KINASE 63 IU/L (30-200); CREATININE, SERUM 1.65 mg/dL (0.72-1.25); EST GLOMERULAR FILTRATION RATE 40 ML/MIN (60-); GLUCOSE 131 mg/dL (74-118); POTASSIUM 4.2 mmol/L (3.5-5.1); SODIUM 132 mmol/L (136-145)
--- NOTE | 2019-02-25 23:30 | Diagnostic Imaging Report ---
EXAMINATION: CHEST 2 VIEWS INDICATION: Dysphagia, achalasia COMPARISON: Abdominal radiograph 09/17/2018 FINDINGS: PA and lateral views TUBES and LINES: None. LUNGS: Lungs are well inflated. No consolidations. Mild bilateral central bronchial wall thickening. PLEURA: No pleural effusion or pneumothorax. HEART AND MEDIASTINUM: The cardiomediastinal silhouette is not enlarged. Soft tissue dense fullness in the lower mediastinum.. The aorta is tortuous, ectatic with atherosclerotic calcifications. The thoracic aorta is prominent. BONES AND SOFT TISSUES: No acute osseous lesion. Soft tissues are unremarkable. Degenerative changes in the spine. UPPER ABDOMEN: No free air under the diaphragm. IMPRESSION: Soft tissue dense fullness in the lower mediastinum is similar compared to 09/17/2018, and can be due to a distended lower esophagus as seen with achalasia. Findings of bronchitis. Tortuous ectatic thoracic aorta with thoracic aortic calcifications. Signed by: Femi Guzman DO on 02/25/2019 11:26 PM
[2019-02-25 23:54] VITALS: BP 158/79
== END 2019-02-25 23:55 | disposition home or self-care (01) ==
LOC: ER 20:37
DX: R09.89 Other specified symptoms and signs involving the circulatory and respiratory systems (principal); R13.14 Dysphagia, pharyngoesophageal phase
CPT/HCPCS: 36415; 71046; 80053; 82550; 82553; 84484; 85025; 93005; 99283; J1610

== ENCOUNTER → 2019-12-28 | Outpatient (CLI) | payer MEDICARE, BC ==
--- NOTE | 2019-12-28 15:08 | Diagnostic Imaging Report ---
History: Dizziness and giddiness Comparison studies: None Technique: Sagittal and axial T2 FS, axial DWI, axial T2*GRE, axial T1 FLAIR and axial coronal T2 FLAIR. Intravenous contrast: None Findings: Scalp: Normal in signal. No masses. Bone marrow: Normal in signal intensity. Brain sulci: Moderately from. Ventricles: Moderate compensatory dilatation. No hydrocephalus. Extra axial spaces: No mass, no fluid collection. Parenchyma: No mass, hemorrhage or acute or chronic cortical insults. A few scattered small T2 FLAIR hyperintense foci in the supratentorial white matter are nonspecific but are most compatible with chronic microvascular ischemic changes. Mild age-related confluent T2 FLAIR hyperintensity present along the ventricular margins. Suprasellar region: No abnormalities. Craniocervical junction: Patent foramen magnum. No Chiari malformation. Vessels: Normal flow-voids in the arteries and sinuses. Incidental findings: Scattered nonspecific mucosal thickening in the paranasal sinuses with small retention cysts in the bilateral maxillary and right sphenoid sinuses. IMPRESSION: No acute intracranial abnormalities. Chronic findings: 1. Moderate generalized parenchymal volume loss. 2. Mild microvascular ischemic changes. Signed by: Dr. Jake Nino M.D. on 12/28/2019 3:05 PM
== END ==
LOC: MRI 13:43
PROVIDERS: ATTEND Family Medicine
DX: R42 Dizziness and giddiness (principal); I65.23 Occlusion and stenosis of bilateral carotid arteries
CPT/HCPCS: 70551; 93880

== ENCOUNTER 2020-11-26 11:18 | Inpatient (IN) | payer MEDICARE, BC ==
[~2020-11-26] VITALS: Ht 185.4 cm; Wt 93.0 kg
[~2020-11-26 11:18] MED LIST changes: -DDAVP 0.0110 MCG/0.1; +DDAVP 0.0110 MCG/0.1 IH
[2020-11-26 12:07] LABS: BASOPHILS % 0.3 % (0.0-1.0); EOSINOPHILS # (AUTO) 0.3 (0.0-0.4); EOSINOPHILS % 5.1 % (0.0-6.0); HEMATOCRIT 30.1 % (38.2-49.6); HEMOGLOBIN 9.7 g/dL (14.0-18.0); LYMPHOCYTES # (AUTO) 1.1 (1.0-3.2); LYMPHOCYTES % 19.3 % (18.0-39.1); MEAN CORPUSCULAR HEMOGLOBIN 31.5 pg (28-32); MEAN CORPUSCULAR HGB CONC 32.2 g/dL (31-35); MEAN CORPUSCULAR VOLUME 97.7 fL (81-99); MONOCYTES # (AUTO) 0.6 (0.2-0.8); MONOCYTES % 10.3 % (4.4-11.3); NEUTROPHILS # (AUTO) 3.8 (2.1-6.9); NEUTROPHILS % 64.8 % (38.7-80.0); PLATELET COUNT 194 x10e3/uL (140-360); RED BLOOD COUNT 3.08 x10e6/uL (4.3-5.7); RED CELL DISTRIBUTION WIDTH 13.1 % (11.7-14.4)
[2020-11-26 12:22] LABS: ALBUMIN 3.7 g/dL (3.5-5.0); ANION GAP 13.4 mmol/L (8-16); CALCIUM 9.2 mg/dL (8.4-10.2); CREATININE, SERUM 1.48 mg/dL (0.72-1.25); MAGNESIUM 2.1 MG/DL (1.3-2.1); POTASSIUM 4.4 mmol/L (3.5-5.1)
[2020-11-26 12:32] LABS: CREATINE KINASE MB 1.1 ng/mL (0-5.0)
[2020-11-26] MEDS ORDERED: ONDANSETRON HCL INJ 2MG/ML 2ML 2 MG/ML VIAL IV PRN (13:30)
[2020-11-26 16:36] VITALS: BP 146/92
[2020-11-26] MEDS: SODIUM CHLORIDE 0.9% 1000ML 1,000 ML IV SCH ×2 (16:44→23:30)
[2020-11-26] MEDS ORDERED: BISACODYL5 MG PO (17:56)
[2020-11-26] MEDS ORDERED: LYRICA25 MG PO (17:56)
[2020-11-26] MEDS ORDERED: FEROSUL325 MG PO (17:56)
[2020-11-26] MEDS ORDERED: ATORVASTATIN CA10 MG PO (17:56)
[2020-11-26] MEDS ORDERED: METAMUCIL FIBE3.4 GM PO (17:56)
[2020-11-26 19:49] VITALS: BP 138/80
[2020-11-26 20:18] VITALS: BP 138/80
[2020-11-26 20:43] VITALS: BP 138/80
[2020-11-26 21:53] LABS: CREATINE KINASE MB 1.1 ng/mL (0-5.0)
[2020-11-27] VITALS (8 sets, daily range): BP systolic 131–165; BP diastolic 68–79
[2020-11-27 07:06] LABS: BASOPHILS % 0.6 % (0.0-1.0); EOSINOPHILS # (AUTO) 0.4 (0.0-0.4); EOSINOPHILS % 8.2 % (0.0-6.0); HEMATOCRIT 30.4 % (38.2-49.6); HEMOGLOBIN 9.8 g/dL (14.0-18.0); LYMPHOCYTES % 20.1 % (18.0-39.1); MEAN CORPUSCULAR HEMOGLOBIN 31.7 pg (28-32); MEAN CORPUSCULAR HGB CONC 32.2 g/dL (31-35); MEAN CORPUSCULAR VOLUME 98.4 fL (81-99); MONOCYTES # (AUTO) 0.6 (0.2-0.8); MONOCYTES % 13.5 % (4.4-11.3); NEUTROPHILS # (AUTO) 2.7 (2.1-6.9); NEUTROPHILS % 57.4 % (38.7-80.0); PLATELET COUNT 171 x10e3/uL (140-360); RED BLOOD COUNT 3.09 x10e6/uL (4.3-5.7)
[2020-11-27 07:46] LABS: ALBUMIN 3.5 g/dL (3.5-5.0); ANION GAP 14.1 mmol/L (8-16); CALCIUM 9.1 mg/dL (8.4-10.2); CREATININE, SERUM 1.23 mg/dL (0.72-1.25); POTASSIUM 4.1 mmol/L (3.5-5.1)
[2020-11-27 08:03] LABS: CREATINE KINASE MB 1.1 ng/mL (0-5.0)
[2020-11-27] MEDS: SODIUM CHLORIDE 0.9% 1000ML 1,000 ML IV SCH ×2 (08:15→19:30)
[2020-11-27] MEDS: FERROUS SULFATE 325 MG TAB PO SCH (11:19)
[2020-11-27] MEDS: METOPROLOL TARTRATE 25 MG TAB PO SCH ×2 (11:19→21:00)
[2020-11-27] MEDS: PANTOPRAZOLE SOD 40 MG TABEC PO SCH (16:37)
[2020-11-27] MEDS: MEMANTINE 10 MG TAB PO SCH (16:37)
[2020-11-27] MEDS: HYDRALAZINE HCL 25 MG TAB PO SCH (16:37)
[2020-11-27] MEDS ORDERED: OLANZAPINE 5 MG TAB PO SCH (21:00)
[2020-11-27] MEDS ORDERED: ATORVASTATIN 10 MG TAB PO SCH (21:00)
[2020-11-27] MEDS ORDERED: DESMOPRESSIN INH SCH (21:00)
[2020-11-28] VITALS: BP 133/69
[2020-11-28 04:00] VITALS: BP 141/69
[2020-11-28 05:00] LABS: BASOPHILS % 0.2 % (0.0-1.0); EOSINOPHILS # (AUTO) 0.3 (0.0-0.4); EOSINOPHILS % 3.6 % (0.0-6.0); HEMATOCRIT 29.2 % (38.2-49.6); HEMOGLOBIN 9.6 g/dL (14.0-18.0); LYMPHOCYTES % 12.2 % (18.0-39.1); MEAN CORPUSCULAR HGB CONC 32.9 g/dL (31-35); MEAN CORPUSCULAR VOLUME 97.3 fL (81-99); MONOCYTES # (AUTO) 0.7 (0.2-0.8); MONOCYTES % 8.4 % (4.4-11.3); NEUTROPHILS # (AUTO) 6.1 (2.1-6.9); NEUTROPHILS % 75.2 % (38.7-80.0); PLATELET COUNT 171 x10e3/uL (140-360); RED CELL DISTRIBUTION WIDTH 12.9 % (11.7-14.4)
[2020-11-28 05:23] LABS: ALBUMIN 3.2 g/dL (3.5-5.0); CALCIUM 8.5 mg/dL (8.4-10.2); CREATININE, SERUM 1.16 mg/dL (0.72-1.25)
[2020-11-28] MEDS: SODIUM CHLORIDE 0.9% 1000ML 1,000 ML IV SCH ×2 (05:30→15:30)
[2020-11-28] MEDS ORDERED: BOTULINUM TOXIN TYPE A 100 UNIT VIAL IM ONE (07:08)
[2020-11-28 07:58] VITALS: BP 122/66
[2020-11-28] MEDS: PANTOPRAZOLE SOD 40 MG TABEC PO SCH (08:36)
[2020-11-28] MEDS: MEMANTINE 10 MG TAB PO SCH ×2 (08:37→16:12)
[2020-11-28] MEDS: FERROUS SULFATE 325 MG TAB PO SCH (08:37)
[2020-11-28] MEDS: HYDRALAZINE HCL 25 MG TAB PO SCH ×2 (08:37→16:12)
[2020-11-28 08:41] VITALS: BP 121/66
[2020-11-28] MEDS ORDERED: PREGABALIN 25 MG CAP PO SCH (09:00)
[2020-11-28] MEDS ORDERED: CYANOCOBALAMIN 1,000 MCG TAB PO SCH (09:00)
[2020-11-28] MEDS: METOPROLOL TARTRATE 25 MG TAB PO SCH (11:18)
[2020-11-28 11:31] VITALS: BP 109/63
[2020-11-28 15:43] VITALS: BP 137/70
[2020-11-28] MEDS ORDERED: PROPOFOL IV EMULSION 10 MG/ML 20 ML VIAL ONE (19:26)
[2020-11-28] MEDS ORDERED: LIDOCAINE HCL 2% LOCAL INJ 5 ML SDV VIAL INJ ONE (19:26)
== END 2020-11-28 18:53 | disposition home or self-care (01) | DRG 392 ==
LOC: ER 12:09 → ERHOLD 13:20 → MED/SURG 16:08
PROVIDERS: ADMIT Family Medicine; ATTEND Family Medicine
PROC: 0DB78ZX Excision of Stomach, Pylorus, Via Natural or Artificial Opening Endoscopic, Diagnostic (ICD-10-PCS; 2020-11-28)
PROC: 0D738ZZ Dilation of Lower Esophagus, Via Natural or Artificial Opening Endoscopic (ICD-10-PCS; 2020-11-28)
PROC: 3E0G8GC Introduction of Other Therapeutic Substance into Upper GI, Via Natural or Artificial Opening Endoscopic (ICD-10-PCS; principal; 2020-11-28 07:00)
DX: K22.0 Achalasia of cardia (principal); N17.9 Acute kidney failure, unspecified; I12.9 Hypertensive chronic kidney disease with stage 1 through stage 4 chronic kidney disease, or unspecified chronic kidney disease; N18.9 Chronic kidney disease, unspecified; K44.9 Diaphragmatic hernia without obstruction or gangrene; K29.70 Gastritis, unspecified, without bleeding; D64.9 Anemia, unspecified; I48.91 Unspecified atrial fibrillation; Z79.01 Long term (current) use of anticoagulants; I10 Essential (primary) hypertension; Z20.822 Contact with and (suspected) exposure to COVID-19
CPT/HCPCS: 36415; 43239; 71045; 80053; 82550; 82553; 83735; 83880; 84484; 85025; 88305; 88312; 93005; 99284; J0587; J2001; J7030; U0002

== ENCOUNTER 2021-01-17 11:27 | Inpatient (IN) | payer MEDICARE, BC ==
[~2021-01-17] VITALS: Ht 185.4 cm; Wt 93.0 kg
[~2021-01-17 11:27] MED LIST changes: +ATORVASTATIN CA10 MG PO; +BISACODYL5 MG PO; +LYRICA25 MG PO; +METAMUCIL FIBE3.4 GM PO
[2021-01-17 12:22] LABS: BASOPHILS % 0.3 % (0.0-1.0); EOSINOPHILS % 0.1 % (0.0-6.0); HEMATOCRIT 30.3 % (38.2-49.6); HEMOGLOBIN 9.4 g/dL (14.0-18.0); LYMPHOCYTES # (AUTO) 0.7 (1.0-3.2); LYMPHOCYTES % 10.3 % (18.0-39.1); NEUTROPHILS # (AUTO) 5.2 (2.1-6.9); PLATELET COUNT 112 x10e3/uL (140-360); RED BLOOD COUNT 3.03 x10e6/uL (4.3-5.7); RED CELL DISTRIBUTION WIDTH 14.1 % (11.7-14.4)
[2021-01-17 12:32] LABS: BACTERIA,URINE FEW /HPF; CLARITY,URINE SL CLOUDY (CLEAR); COLOR,URINE YELLOW (YELLOW); KETONES,URINE NEGATIVE (NEGATIVE); LEUKOCYTE ESTERASE ,URINE LARGE (NEGATIVE); NITRITE,URINE NEGATIVE (NEGATIVE); PROTEIN,URINE DIPSTICK 1+ (NEGATIVE); URINE UROBILINOGEN 0.2 mg/dL (0.2 - 1)
[2021-01-17 12:44] LABS: ALBUMIN 3.4 g/dL (3.5-5.0); ALBUMIN/GLOBULIN RATIO 0.9 (0.8-2.0); ALKALINE PHOSPHATASE 61 IU/L (40-150); ANION GAP 18.8 mmol/L (8-16); BLOOD UREA NITROGEN 59 mg/dL (7-26); BUN/CREATININE RATIO 27 (6-25); CALCIUM 8.6 mg/dL (8.4-10.2); CARBON DIOXIDE 20 mmol/L (22-29); CHLORIDE 103 mmol/L (98-107); CREATININE, SERUM 2.15 mg/dL (0.72-1.25); EST GLOMERULAR FILTRATION RATE 30 ML/MIN (60-); GLUCOSE 96 mg/dL (74-118); POTASSIUM 3.8 mmol/L (3.5-5.1); SODIUM 138 mmol/L (136-145)
[2021-01-17 12:51] LABS: ALANINE AMINOTRANSFERASE < 6 IU/L (0-55)
[2021-01-17] MEDS ORDERED: CEFTRIAXONE 1 GM VIAL IV ONE (14:45)
[2021-01-17] MEDS: SODIUM CHLORIDE 0.9% 1000ML 1,000 ML IV SCH ×2 (15:04→18:06)
[2021-01-17] MEDS ORDERED: CEFTRIAXONE 1 GM VIAL ONE (15:12)
[2021-01-17] MEDS ORDERED: CEFTRIAXONE 1 GM in SODIUM CHLORIDE 0.9% 50ML 50 ML IV SCH (15:15)
[2021-01-17 18:13] VITALS: BP 110/64
[2021-01-17 20:08] VITALS: BP 127/74
[2021-01-18] VITALS (8 sets, daily range): BP systolic 112–142; BP diastolic 63–86
[2021-01-18 05:07] LABS: BASOPHILS % 0.2 % (0.0-1.0); EOSINOPHILS % 0.3 % (0.0-6.0); HEMATOCRIT 27.3 % (38.2-49.6); HEMOGLOBIN 8.5 g/dL (14.0-18.0); LYMPHOCYTES # (AUTO) 0.6 (1.0-3.2); LYMPHOCYTES % 10.1 % (18.0-39.1); MEAN CORPUSCULAR HEMOGLOBIN 31.5 pg (28-32); MEAN CORPUSCULAR HGB CONC 31.1 g/dL (31-35); MEAN CORPUSCULAR VOLUME 101.1 fL (81-99); MONOCYTES # (AUTO) 0.9 (0.2-0.8); MONOCYTES % 15.8 % (4.4-11.3); NEUTROPHILS # (AUTO) 4.3 (2.1-6.9); NEUTROPHILS % 73.1 % (38.7-80.0); PLATELET COUNT 92 x10e3/uL (140-360); RED CELL DISTRIBUTION WIDTH 14.1 % (11.7-14.4)
[2021-01-18 05:22] LABS: ANION GAP 14.4 mmol/L (8-16); CALCIUM 8.2 mg/dL (8.4-10.2); CREATININE, SERUM 1.89 mg/dL (0.72-1.25); POTASSIUM 3.4 mmol/L (3.5-5.1)
[2021-01-18] MEDS ORDERED: BISACODYL 5 MG TAB EC PO PRN (08:15)
[2021-01-18] MEDS: CYANOCOBALAMIN 100 MCG TAB PO SCH (09:00)
[2021-01-18] MEDS: FERROUS SULFATE 325 MG TAB PO SCH (09:16)
[2021-01-18] MEDS: PIPERACILLIN/TAZOBACTAM 2.25 GM in SODIUM CHLORIDE 0.9% 50ML 50 ML IV SCH ×3 (09:19→21:00)
[2021-01-18] MEDS: POTASSIUM CHLORIDE 20 MEQ TAB CR PO SCH ×2 (09:19→11:17)
[2021-01-18] MEDS: GEMFIBROZIL 600 MG TAB PO SCH ×2 (09:20→16:02)
[2021-01-18] MEDS: MEMANTINE 10 MG TAB PO SCH ×2 (09:20→16:02)
[2021-01-18] MEDS: PANTOPRAZOLE SOD 40 MG TABEC PO SCH ×2 (11:34→16:02)
[2021-01-18] MEDS: SODIUM CHLORIDE 0.9% 1000ML 1,000 ML IV SCH ×2 (13:08→21:33)
[2021-01-18 18:33] LABS: % IRON SATURATION 5 % (15-50); IRON 12 ug/dL (65-175); TOTAL IRON BINDING CAPACITY 224 ug/dL (261-478); TRANSFERRIN 160 mg/dL (174-364)
[2021-01-18] MEDS ORDERED: IRON SUCROSE 100 MG in SODIUM CHLORIDE 0.9% 100 ML 100 ML IV SCH (20:00)
[2021-01-18] MEDS ORDERED: DESMOPRESSIN ACETATE 5 ML SPRAY NS SCH (21:00)
[2021-01-18] MEDS ORDERED: ATORVASTATIN 10 MG TAB PO SCH (21:00)
[2021-01-18] MEDS ORDERED: DESMOPRESSIN IH SCH (21:00)
[2021-01-19] VITALS (7 sets, daily range): BP systolic 117–142; BP diastolic 66–93
[2021-01-19] MEDS: SODIUM CHLORIDE 0.9% 1000ML 1,000 ML IV SCH ×2 (04:10→12:22)
[2021-01-19] MEDS: PIPERACILLIN/TAZOBACTAM 2.25 GM in SODIUM CHLORIDE 0.9% 50ML 50 ML IV SCH ×3 (04:10→14:41)
[2021-01-19 09:35] LABS: BASOPHILS % 0.5 % (0.0-1.0); EOSINOPHILS # (AUTO) 0.2 (0.0-0.4); EOSINOPHILS % 4.2 % (0.0-6.0); HEMATOCRIT 26.1 % (38.2-49.6); HEMOGLOBIN 8.1 g/dL (14.0-18.0); LYMPHOCYTES # (AUTO) 0.7 (1.0-3.2); LYMPHOCYTES % 15.6 % (18.0-39.1); MEAN CORPUSCULAR HEMOGLOBIN 30.9 pg (28-32); MEAN CORPUSCULAR VOLUME 99.6 fL (81-99); MONOCYTES # (AUTO) 0.8 (0.2-0.8); MONOCYTES % 18.4 % (4.4-11.3); NEUTROPHILS # (AUTO) 2.6 (2.1-6.9); NEUTROPHILS % 61.1 % (38.7-80.0); PLATELET COUNT 93 x10e3/uL (140-360); RED BLOOD COUNT 2.62 x10e6/uL (4.3-5.7); RED CELL DISTRIBUTION WIDTH 14.3 % (11.7-14.4)
[2021-01-19] MEDS: PANTOPRAZOLE SOD 40 MG TABEC PO SCH (09:38)
[2021-01-19] MEDS: MEMANTINE 10 MG TAB PO SCH (09:39)
[2021-01-19] MEDS: GEMFIBROZIL 600 MG TAB PO SCH (09:39)
[2021-01-19] MEDS: FERROUS SULFATE 325 MG TAB PO SCH (09:39)
[2021-01-19] MEDS: CYANOCOBALAMIN 100 MCG TAB PO SCH (09:39)
[2021-01-19 09:50] LABS: ALBUMIN 2.8 g/dL (3.5-5.0); ALBUMIN/GLOBULIN RATIO 0.8 (0.8-2.0); ANION GAP 14.6 mmol/L (8-16); CALCIUM 8.2 mg/dL (8.4-10.2); CREATININE, SERUM 1.6 mg/dL (0.72-1.25); POTASSIUM 3.6 mmol/L (3.5-5.1)
== END 2021-01-19 15:41 | disposition home or self-care (01) | DRG 683 ==
LOC: ER 11:47 → ERHOLD 14:43 → MED/SURG2 17:40 → OBSVTOIN 01-19 09:49
PROVIDERS: ADMIT Family Medicine; ATTEND Family Medicine
DX: N17.9 Acute kidney failure, unspecified (principal); N39.0 Urinary tract infection, site not specified; E23.2 Diabetes insipidus; I10 Essential (primary) hypertension; I48.91 Unspecified atrial fibrillation; K21.9 Gastro-esophageal reflux disease without esophagitis; E86.0 Dehydration; D64.9 Anemia, unspecified; R53.81 Other malaise; E78.5 Hyperlipidemia, unspecified; E66.9 Obesity, unspecified; Z88.5 Allergy status to narcotic agent; Z68.27 Body mass index [BMI] 27.0-27.9, adult; Z20.822 Contact with and (suspected) exposure to COVID-19
CPT/HCPCS: 36415; 70450; 71045; 80048; 80053; 81001; 83540; 83605; 84466; 84484; 85025; 87086; 93005; 99284; G0378; J0696; J1756; J2543; J7030; U0002

== ENCOUNTER 2021-03-31 10:29 | Inpatient (IN) | payer MEDICARE, BC ==
[~2021-03-31] VITALS: Ht 185.4 cm; Wt 96.2 kg
[2021-03-31] MEDS ORDERED: DIATRIZOATE MEGL/DIATRIZOA SOD 120 ML BTL PO ONE (11:51)
[2021-03-31] MEDS ORDERED: ONDANSETRON HCL INJ 2MG/ML 2ML 2 MG/ML VIAL IV PRN (12:45)
[2021-03-31 13:07] LABS: BASOPHILS % 0.5 % (0.0-1.0); EOSINOPHILS # (AUTO) 0.1 (0.0-0.4); EOSINOPHILS % 1.2 % (0.0-6.0); HEMATOCRIT 28.3 % (38.2-49.6); HEMOGLOBIN 8.6 g/dL (14.0-18.0); LYMPHOCYTES # (AUTO) 0.7 (1.0-3.2); LYMPHOCYTES % 11.7 % (18.0-39.1); MEAN CORPUSCULAR HEMOGLOBIN 29.5 pg (28-32); MEAN CORPUSCULAR HGB CONC 30.4 g/dL (31-35); MEAN CORPUSCULAR VOLUME 96.9 fL (81-99); MONOCYTES # (AUTO) 0.8 (0.2-0.8); MONOCYTES % 14.2 % (4.4-11.3); NEUTROPHILS # (AUTO) 4.1 (2.1-6.9); PLATELET COUNT 121 x10e3/uL (140-360); RED BLOOD COUNT 2.92 x10e6/uL (4.3-5.7); RED CELL DISTRIBUTION WIDTH 14.5 % (11.7-14.4)
[2021-03-31 13:17] LABS: CLARITY,URINE CLOUDY (CLEAR); COLOR,URINE YELLOW (YELLOW); KETONES,URINE NEGATIVE (NEGATIVE); LEUKOCYTE ESTERASE ,URINE SMALL (NEGATIVE); NITRITE,URINE NEGATIVE (NEGATIVE); PROTEIN,URINE DIPSTICK NEGATIVE (NEGATIVE); URINE UROBILINOGEN 0.2 mg/dL (0.2 - 1)
[2021-03-31 13:19] LABS: ALANINE AMINOTRANSFERASE < 6 IU/L (0-55); ALBUMIN 3.3 g/dL (3.5-5.0); ALBUMIN/GLOBULIN RATIO 0.8 (0.8-2.0); ALKALINE PHOSPHATASE 69 IU/L (40-150); ANION GAP 15.2 mmol/L (8-16); BACTERIA,URINE MANY /HPF; BLOOD UREA NITROGEN 34 mg/dL (7-26); BUN/CREATININE RATIO 19 (6-25); CALCIUM 9.1 mg/dL (8.4-10.2); CARBON DIOXIDE 25 mmol/L (22-29); CHLORIDE 105 mmol/L (98-107); CREATININE, SERUM 1.77 mg/dL (0.72-1.25); EPITHELIAL CELLS,URINE FEW /LPF; EST GLOMERULAR FILTRATION RATE 37 ML/MIN (60-); GLUCOSE 86 mg/dL (74-118); POTASSIUM 4.2 mmol/L (3.5-5.1); SODIUM 141 mmol/L (136-145); WBC,URINE (MAN) >50 /HPF (0-5)
[2021-03-31 13:37] VITALS: BP 136/86
[2021-03-31] MEDS ORDERED: PROPOFOL IV EMULSION 10 MG/ML 20 ML VIAL ONE (13:57)
[2021-03-31] MEDS ORDERED: POVIDONE IODINE 0.05% 0.05 % ML PO ONE (13:57)
[2021-03-31] MEDS ORDERED: LIDOCAINE HCL 2% LOCAL INJ 5 ML SDV VIAL INJ ONE (13:57)
[2021-03-31] MEDS ORDERED: SUCCINYLCHOLINE CHLORIDE 20 MG/ML 10ML VIAL ONE (13:57)
[2021-03-31 14:40] VITALS: BP 136/86
[2021-03-31] MEDS: SODIUM CHLORIDE 0.9% 1000ML 1,000 ML IV SCH ×2 (16:11→21:20)
[2021-03-31 20:00] VITALS: BP 144/76
[2021-03-31 21:00] VITALS: BP 144/76
[2021-03-31] MEDS ORDERED: MIRALAX17 GM PO (21:00)
[2021-04-01] VITALS (7 sets, daily range): BP systolic 132–144; BP diastolic 73–98
[2021-04-01] MEDS: SODIUM CHLORIDE 0.9% 1000ML 1,000 ML IV SCH ×3 (05:02→20:46)
[2021-04-01 05:21] LABS: BASOPHILS % 0.5 % (0.0-1.0); EOSINOPHILS # (AUTO) 0.1 (0.0-0.4); EOSINOPHILS % 1.9 % (0.0-6.0); HEMOGLOBIN 8.6 g/dL (14.0-18.0); LYMPHOCYTES # (AUTO) 0.7 (1.0-3.2); LYMPHOCYTES % 17.7 % (18.0-39.1); MEAN CORPUSCULAR HEMOGLOBIN 29.7 pg (28-32); MEAN CORPUSCULAR HGB CONC 30.7 g/dL (31-35); MEAN CORPUSCULAR VOLUME 96.6 fL (81-99); MONOCYTES # (AUTO) 0.6 (0.2-0.8); MONOCYTES % 14.6 % (4.4-11.3); NEUTROPHILS # (AUTO) 2.7 (2.1-6.9); NEUTROPHILS % 65.1 % (38.7-80.0); PLATELET COUNT 119 x10e3/uL (140-360); RED CELL DISTRIBUTION WIDTH 14.5 % (11.7-14.4)
[2021-04-01 05:43] LABS: ANION GAP 16.1 mmol/L (8-16); CALCIUM 8.9 mg/dL (8.4-10.2); CREATININE, SERUM 1.46 mg/dL (0.72-1.25); POTASSIUM 4.1 mmol/L (3.5-5.1)
[2021-04-01] MEDS ORDERED: BOTULINUM TOXIN TYPE A 100 UNIT VIAL IM ONE (12:29)
[2021-04-01] MEDS ORDERED: SODIUM CHLORIDE 0.9% 1000ML 1,000 ML ONE (12:34)
[2021-04-01] MEDS ORDERED: ALBUTEROL/IPRATROPIUM 3 ML NEB ONE (13:34)
[2021-04-02] VITALS: BP 147/97
[2021-04-02 04:00] VITALS: BP 158/85
[2021-04-02] MEDS: SODIUM CHLORIDE 0.9% 1000ML 1,000 ML IV SCH (04:18)
[2021-04-02 06:02] LABS: BASOPHILS % 0.1 % (0.0-1.0); EOSINOPHILS % 0.4 % (0.0-6.0); HEMATOCRIT 26.3 % (38.2-49.6); HEMOGLOBIN 7.9 g/dL (14.0-18.0); LYMPHOCYTES # (AUTO) 0.6 (1.0-3.2); LYMPHOCYTES % 8.4 % (18.0-39.1); MEAN CORPUSCULAR HEMOGLOBIN 29.4 pg (28-32); MEAN CORPUSCULAR VOLUME 97.8 fL (81-99); MONOCYTES # (AUTO) 0.9 (0.2-0.8); MONOCYTES % 11.8 % (4.4-11.3); NEUTROPHILS # (AUTO) 5.7 (2.1-6.9); PLATELET COUNT 118 x10e3/uL (140-360); RED BLOOD COUNT 2.69 x10e6/uL (4.3-5.7); RED CELL DISTRIBUTION WIDTH 14.5 % (11.7-14.4)
[2021-04-02 06:19] LABS: ANION GAP 14.9 mmol/L (8-16); CALCIUM 8.9 mg/dL (8.4-10.2); CREATININE, SERUM 1.24 mg/dL (0.72-1.25); POTASSIUM 3.9 mmol/L (3.5-5.1)
[2021-04-02 08:00] VITALS: BP 142/83
== END 2021-04-02 11:14 | disposition home or self-care (01) | DRG 392 ==
LOC: ER 11:03 → ERHOLD 12:38 → MED/SURG3 13:37
PROVIDERS: ADMIT Family Medicine; ATTEND Family Medicine
PROC: 0DC28ZZ Extirpation of Matter from Middle Esophagus, Via Natural or Artificial Opening Endoscopic (ICD-10-PCS; principal; 2021-03-31)
PROC: 3E0G8GC Introduction of Other Therapeutic Substance into Upper GI, Via Natural or Artificial Opening Endoscopic (ICD-10-PCS; 2021-03-31)
PROC: 0D738ZZ Dilation of Lower Esophagus, Via Natural or Artificial Opening Endoscopic (ICD-10-PCS; 2021-03-31)
DX: K22.0 Achalasia of cardia (principal); N17.9 Acute kidney failure, unspecified; E22.2 Syndrome of inappropriate secretion of antidiuretic hormone; K44.9 Diaphragmatic hernia without obstruction or gangrene; T17.228A Food in pharynx causing other injury, initial encounter; E78.5 Hyperlipidemia, unspecified; Z20.822 Contact with and (suspected) exposure to COVID-19; D50.9 Iron deficiency anemia, unspecified; R09.89 Other specified symptoms and signs involving the circulatory and respiratory systems; I12.9 Hypertensive chronic kidney disease with stage 1 through stage 4 chronic kidney disease, or unspecified chronic kidney disease; N18.31 Chronic kidney disease, stage 3a
CPT/HCPCS: 36415; 43239; 43450; 71045; 74246; 80048; 80053; 81001; 83880; 84484; 85025; 93005; 94799; 99284; J0330; J0587; J2001; J7030; Q9963; U0002

== ENCOUNTER 2021-05-05 09:04 | Inpatient (IN) | payer MEDICARE, BC ==
[~2021-05-05] VITALS: Ht 190.5 cm; Wt 117.9 kg
[~2021-05-05 09:04] MED LIST changes: +MIRALAX17 GM PO
[2021-05-05] MEDS ORDERED: FUROSEMIDE INJ 10 MG/ML 4 ML VIAL IV ONE (09:30)
[2021-05-05] MEDS ORDERED: BRIMONIDINE TART5 ML OU (09:31)
[2021-05-05] MEDS ORDERED: AMITRIPTYLINE H25 MG PO (09:31)
[2021-05-05 09:32] LABS: BASOPHILS % 0.8 % (0.0-1.0); EOSINOPHILS # (AUTO) 0.2 (0.0-0.4); EOSINOPHILS % 4.2 % (0.0-6.0); HEMATOCRIT 29.8 % (38.2-49.6); HEMOGLOBIN 8.7 g/dL (14.0-18.0); LYMPHOCYTES # (AUTO) 1.5 (1.0-3.2); LYMPHOCYTES % 28.1 % (18.0-39.1); MEAN CORPUSCULAR HEMOGLOBIN 29.1 pg (28-32); MEAN CORPUSCULAR HGB CONC 29.2 g/dL (31-35); MEAN CORPUSCULAR VOLUME 99.7 fL (81-99); MONOCYTES # (AUTO) 0.8 (0.2-0.8); NEUTROPHILS # (AUTO) 2.7 (2.1-6.9); NEUTROPHILS % 51.3 % (38.7-80.0); PLATELET COUNT 125 x10e3/uL (140-360); RED BLOOD COUNT 2.99 x10e6/uL (4.3-5.7)
[2021-05-05 09:51] LABS: ALBUMIN 3.2 g/dL (3.5-5.0); ALBUMIN/GLOBULIN RATIO 0.7 (0.8-2.0); ALKALINE PHOSPHATASE 63 IU/L (40-150); BLOOD UREA NITROGEN 36 mg/dL (7-26); BUN/CREATININE RATIO 20 (6-25); CALCIUM 8.8 mg/dL (8.4-10.2); CARBON DIOXIDE 25 mmol/L (22-29); CHLORIDE 104 mmol/L (98-107); CREATININE, SERUM 1.76 mg/dL (0.72-1.25); EST GLOMERULAR FILTRATION RATE 37 ML/MIN (60-); GLUCOSE 76 mg/dL (74-118); SODIUM 139 mmol/L (136-145)
[2021-05-05 10:03] LABS: ALANINE AMINOTRANSFERASE < 6 IU/L (0-55)
[2021-05-05 12:25] LABS: CLARITY,URINE CLOUDY (CLEAR); COLOR,URINE YELLOW (YELLOW)
[2021-05-05 12:26] LABS: KETONES,URINE NEGATIVE (NEGATIVE); LEUKOCYTE ESTERASE ,URINE MODERATE (NEGATIVE); NITRITE,URINE NEGATIVE (NEGATIVE); PROTEIN,URINE DIPSTICK 1+ (NEGATIVE); URINE UROBILINOGEN 0.2 mg/dL (0.2 - 1)
[2021-05-05 13:03] LABS: BACTERIA,URINE MANY /HPF; WBC,URINE (MAN) >50 /HPF (0-5)
[2021-05-05 16:15] VITALS: BP 134/66
[2021-05-05] MEDS: GEMFIBROZIL 600 MG TAB PO SCH (18:00)
[2021-05-05] MEDS: MEMANTINE 10 MG TAB PO SCH (19:22)
[2021-05-05] MEDS: METOPROLOL TARTRATE 25 MG TAB PO SCH (19:22)
[2021-05-05] MEDS: FUROSEMIDE INJ 10 MG/ML 2 ML VIAL IV SCH (19:22)
[2021-05-05] MEDS: PANTOPRAZOLE SOD 40 MG TABEC PO SCH (19:23)
[2021-05-05 19:46] LABS: % IRON SATURATION 22 % (15-50); IRON 70 ug/dL (65-175); TOTAL IRON BINDING CAPACITY 316 ug/dL (261-478); TRANSFERRIN 226 mg/dL (174-364)
[2021-05-05 19:52] VITALS: BP 125/59
[2021-05-05 20:00] VITALS: BP 125/59
[2021-05-05] MEDS ORDERED: DESMOPRESSIN IH SCH (21:00)
[2021-05-05] MEDS ORDERED: OLANZAPINE 5 MG PO SCH (21:00)
[2021-05-05] MEDS: ATORVASTATIN 10 MG TAB PO SCH (22:19)
[2021-05-05] MEDS: OLANZAPINE 5 MG TAB PO SCH (22:19)
[2021-05-05] MEDS: DESMOPRESSIN ACETATE 5 ML SPRAY NS SCH (22:19)
[2021-05-06] VITALS (7 sets, daily range): BP systolic 99–120; BP diastolic 47–73
[2021-05-06 05:50] LABS: BASOPHILS % 0.6 % (0.0-1.0); EOSINOPHILS # (AUTO) 0.1 (0.0-0.4); EOSINOPHILS % 1.7 % (0.0-6.0); HEMATOCRIT 27.2 % (38.2-49.6); HEMOGLOBIN 8.2 g/dL (14.0-18.0); LYMPHOCYTES % 18.9 % (18.0-39.1); MEAN CORPUSCULAR HGB CONC 30.1 g/dL (31-35); MEAN CORPUSCULAR VOLUME 96.1 fL (81-99); MONOCYTES # (AUTO) 0.7 (0.2-0.8); MONOCYTES % 13.3 % (4.4-11.3); NEUTROPHILS # (AUTO) 3.4 (2.1-6.9); NEUTROPHILS % 65.1 % (38.7-80.0); PLATELET COUNT 114 x10e3/uL (140-360); RED BLOOD COUNT 2.83 x10e6/uL (4.3-5.7); RED CELL DISTRIBUTION WIDTH 16.6 % (11.7-14.4)
[2021-05-06 06:08] LABS: ALBUMIN 2.7 g/dL (3.5-5.0); ALBUMIN/GLOBULIN RATIO 0.7 (0.8-2.0); ALKALINE PHOSPHATASE 57 IU/L (40-150); ANION GAP 12.9 mmol/L (8-16); BLOOD UREA NITROGEN 35 mg/dL (7-26); BUN/CREATININE RATIO 22 (6-25); CALCIUM 8.9 mg/dL (8.4-10.2); CARBON DIOXIDE 34 mmol/L (22-29); CHLORIDE 101 mmol/L (98-107); CREATININE, SERUM 1.62 mg/dL (0.72-1.25); EST GLOMERULAR FILTRATION RATE 41 ML/MIN (60-); GLUCOSE 72 mg/dL (74-118); MAGNESIUM 1.8 MG/DL (1.3-2.1); POTASSIUM 3.9 mmol/L (3.5-5.1); SODIUM 144 mmol/L (136-145)
[2021-05-06 06:13] LABS: ALANINE AMINOTRANSFERASE < 6 IU/L (0-55)
[2021-05-06 06:28] LABS: THYROID STIMULATING HORMONE 1.402 uIU/mL (0.350-4.940)
[2021-05-06] MEDS: PANTOPRAZOLE SOD 40 MG TABEC PO SCH ×2 (08:10→17:00)
[2021-05-06] MEDS: GEMFIBROZIL 600 MG TAB PO SCH ×2 (08:10→17:00)
[2021-05-06] MEDS: FUROSEMIDE INJ 10 MG/ML 2 ML VIAL IV SCH ×2 (08:50→17:25)
[2021-05-06] MEDS: BISACODYL 5 MG TAB EC PO SCH (08:50)
[2021-05-06] MEDS: CHOLECALCIFEROL 1,000 UNIT TAB PO SCH (08:51)
[2021-05-06] MEDS: MEMANTINE 10 MG TAB PO SCH ×2 (08:51→17:25)
[2021-05-06] MEDS: METOPROLOL TARTRATE 25 MG TAB PO SCH ×2 (08:51→22:30)
[2021-05-06] MEDS: FERROUS SULFATE 325 MG TAB PO SCH (08:51)
[2021-05-06] MEDS: CYANOCOBALAMIN 100 MCG TAB PO SCH (09:00)
[2021-05-06] MEDS: PREGABALIN 25 MG CAP PO SCH (11:00)
[2021-05-06] MEDS: AMITRIPTYLINE HCL 25 MG TAB PO SCH (22:29)
[2021-05-06] MEDS: ATORVASTATIN 10 MG TAB PO SCH (22:29)
[2021-05-06] MEDS: DESMOPRESSIN ACETATE 5 ML SPRAY NS SCH (22:29)
[2021-05-06] MEDS: OLANZAPINE 5 MG TAB PO SCH (22:31)
[2021-05-07] VITALS (8 sets, daily range): BP systolic 95–114; BP diastolic 52–70
[2021-05-07] MEDS: PANTOPRAZOLE SOD 40 MG TABEC PO SCH ×2 (07:30→17:00)
[2021-05-07] MEDS: GEMFIBROZIL 600 MG TAB PO SCH ×2 (07:30→17:00)
[2021-05-07] MEDS: CYANOCOBALAMIN 100 MCG TAB PO SCH (09:00)
[2021-05-07] MEDS: BISACODYL 5 MG TAB EC PO SCH (09:15)
[2021-05-07] MEDS: CHOLECALCIFEROL 1,000 UNIT TAB PO SCH (09:15)
[2021-05-07] MEDS: METOPROLOL TARTRATE 25 MG TAB PO SCH ×2 (09:15→20:28)
[2021-05-07] MEDS: MEMANTINE 10 MG TAB PO SCH ×2 (09:15→17:31)
[2021-05-07] MEDS: FERROUS SULFATE 325 MG TAB PO SCH (09:15)
[2021-05-07] MEDS: PREGABALIN 25 MG CAP PO SCH ×3 (09:15→20:28)
[2021-05-07] MEDS: FUROSEMIDE INJ 10 MG/ML 2 ML VIAL IV SCH ×2 (09:15→17:30)
[2021-05-07] MEDS ORDERED: ENOXAPARIN SOD INJ 40 MG/0.4 ML SYR SC SCH (17:00)
[2021-05-07] MEDS: BRIMONIDINE TARTRATE 0.15% OPTH DRPS 10ML BTL OP SCH (17:30)
[2021-05-07] MEDS: OLANZAPINE 5 MG TAB PO SCH (20:28)
[2021-05-07] MEDS: DESMOPRESSIN ACETATE 5 ML SPRAY NS SCH (20:28)
[2021-05-07] MEDS: AMITRIPTYLINE HCL 25 MG TAB PO SCH (20:28)
[2021-05-07] MEDS: ATORVASTATIN 10 MG TAB PO SCH (20:28)
[2021-05-08] VITALS (9 sets, daily range): BP systolic 83–122; BP diastolic 42–68
[2021-05-08 05:32] LABS: ALBUMIN 2.8 g/dL (3.5-5.0); ALBUMIN/GLOBULIN RATIO 0.6 (0.8-2.0); ALKALINE PHOSPHATASE 56 IU/L (40-150); ANION GAP 16.6 mmol/L (8-16); CARBON DIOXIDE 39 mmol/L (22-29); CHLORIDE 88 mmol/L (98-107); CREATININE, SERUM 2.18 mg/dL (0.72-1.25); EST GLOMERULAR FILTRATION RATE 29 ML/MIN (60-); GLUCOSE 106 mg/dL (74-118); POTASSIUM 3.6 mmol/L (3.5-5.1); SODIUM 140 mmol/L (136-145)
[2021-05-08 05:33] LABS: BASOPHILS % 0.2 % (0.0-1.0); EOSINOPHILS % 0.2 % (0.0-6.0); HEMATOCRIT 29.3 % (38.2-49.6); HEMOGLOBIN 8.9 g/dL (14.0-18.0); LYMPHOCYTES # (AUTO) 1.3 (1.0-3.2); LYMPHOCYTES % 14.9 % (18.0-39.1); MEAN CORPUSCULAR HEMOGLOBIN 28.8 pg (28-32); MEAN CORPUSCULAR HGB CONC 30.4 g/dL (31-35); MEAN CORPUSCULAR VOLUME 94.8 fL (81-99); MONOCYTES # (AUTO) 1.3 (0.2-0.8); MONOCYTES % 15.2 % (4.4-11.3); NEUTROPHILS % 68.8 % (38.7-80.0); PLATELET COUNT 127 x10e3/uL (140-360); RED BLOOD COUNT 3.09 x10e6/uL (4.3-5.7); RED CELL DISTRIBUTION WIDTH 16.5 % (11.7-14.4)
[2021-05-08 05:49] LABS: BLOOD UREA NITROGEN 44 mg/dL (7-26); CALCIUM 9.1 mg/dL (8.4-10.2)
[2021-05-08 06:04] LABS: ALANINE AMINOTRANSFERASE < 6 IU/L (0-55); BUN/CREATININE RATIO 20 (6-25)
[2021-05-08] MEDS: CYANOCOBALAMIN 100 MCG TAB PO SCH (09:00)
[2021-05-08] MEDS: FUROSEMIDE INJ 10 MG/ML 2 ML VIAL IV SCH (10:47)
[2021-05-08] MEDS: BRIMONIDINE TARTRATE 0.15% OPTH DRPS 10ML BTL OP SCH ×2 (10:47→17:26)
[2021-05-08] MEDS: PANTOPRAZOLE SOD 40 MG TABEC PO SCH ×2 (10:53→17:26)
[2021-05-08] MEDS: GEMFIBROZIL 600 MG TAB PO SCH ×2 (10:53→17:26)
[2021-05-08] MEDS: FERROUS SULFATE 325 MG TAB PO SCH (10:54)
[2021-05-08] MEDS: BISACODYL 5 MG TAB EC PO SCH (10:54)
[2021-05-08] MEDS: METOPROLOL TARTRATE 25 MG TAB PO SCH ×2 (10:56→21:46)
[2021-05-08] MEDS: PREGABALIN 25 MG CAP PO SCH ×2 (11:00→17:26)
[2021-05-08] MEDS: MEMANTINE 10 MG TAB PO SCH ×2 (11:01→17:31)
[2021-05-08] MEDS: CHOLECALCIFEROL 1,000 UNIT TAB PO SCH (11:01)
[2021-05-08] MEDS: APIXAB 2.5 MG TABLET PO SCH (17:27)
[2021-05-08] MEDS: FUROSEMIDE INJ 10 MG/ML 4 ML VIAL IV SCH (17:27)
[2021-05-08] MEDS: OLANZAPINE 5 MG TAB PO SCH (21:43)
[2021-05-08] MEDS: ATORVASTATIN 10 MG TAB PO SCH (21:43)
[2021-05-08] MEDS: DESMOPRESSIN ACETATE 5 ML SPRAY NS SCH (21:57)
[2021-05-09] VITALS (7 sets, daily range): BP systolic 97–114; BP diastolic 54–75
[2021-05-09] MEDS: CYANOCOBALAMIN 100 MCG TAB PO SCH (09:00)
[2021-05-09] MEDS: PANTOPRAZOLE SOD 40 MG TABEC PO SCH ×2 (09:29→16:39)
[2021-05-09] MEDS: GEMFIBROZIL 600 MG TAB PO SCH ×2 (09:29→16:39)
[2021-05-09] MEDS: FUROSEMIDE INJ 10 MG/ML 4 ML VIAL IV SCH ×2 (09:29→16:39)
[2021-05-09] MEDS: BISACODYL 5 MG TAB EC PO SCH (09:30)
[2021-05-09] MEDS: APIXAB 2.5 MG TABLET PO SCH ×2 (09:30→16:39)
[2021-05-09] MEDS: FERROUS SULFATE 325 MG TAB PO SCH (09:30)
[2021-05-09] MEDS: MEMANTINE 10 MG TAB PO SCH ×2 (09:31→16:39)
[2021-05-09] MEDS: CHOLECALCIFEROL 1,000 UNIT TAB PO SCH (09:31)
[2021-05-09] MEDS: METOPROLOL TARTRATE 25 MG TAB PO SCH ×2 (09:31→21:00)
[2021-05-09] MEDS: BRIMONIDINE TARTRATE 0.15% OPTH DRPS 10ML BTL OP SCH ×2 (10:00→16:39)
[2021-05-09 19:59] LABS: BASOPHILS % 0.1 % (0.0-1.0); HEMATOCRIT 29.3 % (38.2-49.6); LYMPHOCYTES % 11.5 % (18.0-39.1); MEAN CORPUSCULAR HEMOGLOBIN 29.2 pg (28-32); MEAN CORPUSCULAR HGB CONC 30.7 g/dL (31-35); MEAN CORPUSCULAR VOLUME 95.1 fL (81-99); MONOCYTES # (AUTO) 1.3 (0.2-0.8); MONOCYTES % 14.3 % (4.4-11.3); NEUTROPHILS # (AUTO) 6.6 (2.1-6.9); NEUTROPHILS % 73.8 % (38.7-80.0); PLATELET COUNT 120 x10e3/uL (140-360); RED BLOOD COUNT 3.08 x10e6/uL (4.3-5.7); RED CELL DISTRIBUTION WIDTH 16.2 % (11.7-14.4)
[2021-05-09] MEDS: DESMOPRESSIN ACETATE 5 ML SPRAY NS SCH (20:56)
[2021-05-09] MEDS: ATORVASTATIN 10 MG TAB PO SCH (20:56)
[2021-05-09] MEDS: OLANZAPINE 5 MG TAB PO SCH (20:56)
[2021-05-10] VITALS (8 sets, daily range): BP systolic 90–114; BP diastolic 58–85
[2021-05-10 05:40] LABS: BASOPHILS % 0.3 % (0.0-1.0); EOSINOPHILS % 0.4 % (0.0-6.0); HEMOGLOBIN 9.1 g/dL (14.0-18.0); LYMPHOCYTES # (AUTO) 1.2 (1.0-3.2); LYMPHOCYTES % 18.1 % (18.0-39.1); MEAN CORPUSCULAR HEMOGLOBIN 28.9 pg (28-32); MEAN CORPUSCULAR HGB CONC 30.3 g/dL (31-35); MEAN CORPUSCULAR VOLUME 95.2 fL (81-99); MONOCYTES # (AUTO) 1.1 (0.2-0.8); NEUTROPHILS # (AUTO) 4.3 (2.1-6.9); NEUTROPHILS % 63.9 % (38.7-80.0); PLATELET COUNT 112 x10e3/uL (140-360); RED BLOOD COUNT 3.15 x10e6/uL (4.3-5.7)
[2021-05-10 06:08] LABS: ALBUMIN 2.5 g/dL (3.5-5.0); ALBUMIN/GLOBULIN RATIO 0.5 (0.8-2.0); ALKALINE PHOSPHATASE 54 IU/L (40-150); BLOOD UREA NITROGEN 64 mg/dL (7-26); BUN/CREATININE RATIO 26 (6-25); CHLORIDE 83 mmol/L (98-107); CREATININE, SERUM 2.46 mg/dL (0.72-1.25); EST GLOMERULAR FILTRATION RATE 25 ML/MIN (60-); GLUCOSE 102 mg/dL (74-118); MAGNESIUM 2.1 MG/DL (1.3-2.1); POTASSIUM 3.2 mmol/L (3.5-5.1); SODIUM 137 mmol/L (136-145)
[2021-05-10 06:10] LABS: ALANINE AMINOTRANSFERASE < 6 IU/L (0-55); ANION GAP 11.2 mmol/L (8-16)
[2021-05-10 06:12] LABS: CARBON DIOXIDE 46 mmol/L (22-29)
[2021-05-10] MEDS: CYANOCOBALAMIN 100 MCG TAB PO SCH (09:00)
[2021-05-10] MEDS: PANTOPRAZOLE SOD 40 MG TABEC PO SCH ×2 (09:40→17:38)
[2021-05-10] MEDS: GEMFIBROZIL 600 MG TAB PO SCH ×2 (09:40→17:38)
[2021-05-10] MEDS: FUROSEMIDE INJ 10 MG/ML 4 ML VIAL IV SCH (09:40)
[2021-05-10] MEDS: MEMANTINE 10 MG TAB PO SCH ×2 (09:41→17:38)
[2021-05-10] MEDS: FERROUS SULFATE 325 MG TAB PO SCH (09:41)
[2021-05-10] MEDS: APIXAB 2.5 MG TABLET PO SCH ×2 (09:41→17:38)
[2021-05-10] MEDS: BRIMONIDINE TARTRATE 0.15% OPTH DRPS 10ML BTL OP SCH ×2 (09:41→17:38)
[2021-05-10] MEDS: BISACODYL 5 MG TAB EC PO SCH (09:41)
[2021-05-10] MEDS: CHOLECALCIFEROL 1,000 UNIT TAB PO SCH (09:41)
[2021-05-10] MEDS: METOPROLOL TARTRATE 25 MG TAB PO SCH ×2 (09:41→21:39)
[2021-05-10] MEDS ORDERED: METHYLPREDNISOLONE SOD SUCC 40 MG/ML VIAL 1ML IV ONE (20:15)
[2021-05-10] MEDS: OLANZAPINE 5 MG TAB PO SCH (21:00)
[2021-05-10] MEDS: ATORVASTATIN 10 MG TAB PO SCH (21:00)
[2021-05-10] MEDS: DESMOPRESSIN ACETATE 5 ML SPRAY NS SCH (21:00)
[2021-05-11] VITALS (8 sets, daily range): BP systolic 97–104; BP diastolic 59–75
[2021-05-11 06:07] LABS: BASOPHILS % 0.2 % (0.0-1.0); EOSINOPHILS % 0.2 % (0.0-6.0); HEMATOCRIT 28.3 % (38.2-49.6); HEMOGLOBIN 8.8 g/dL (14.0-18.0); LYMPHOCYTES # (AUTO) 0.7 (1.0-3.2); LYMPHOCYTES % 11.1 % (18.0-39.1); MEAN CORPUSCULAR HEMOGLOBIN 29.4 pg (28-32); MEAN CORPUSCULAR HGB CONC 31.1 g/dL (31-35); MEAN CORPUSCULAR VOLUME 94.6 fL (81-99); MONOCYTES # (AUTO) 0.2 (0.2-0.8); MONOCYTES % 3.5 % (4.4-11.3); NEUTROPHILS # (AUTO) 5.5 (2.1-6.9); NEUTROPHILS % 84.7 % (38.7-80.0); PLATELET COUNT 119 x10e3/uL (140-360); RED BLOOD COUNT 2.99 x10e6/uL (4.3-5.7); RED CELL DISTRIBUTION WIDTH 15.7 % (11.7-14.4)
[2021-05-11 07:04] LABS: ALBUMIN 2.4 g/dL (3.5-5.0); ALBUMIN/GLOBULIN RATIO 0.5 (0.8-2.0); ANION GAP 9.8 mmol/L (8-16); CALCIUM 8.6 mg/dL (8.4-10.2); CREATININE, SERUM 2.12 mg/dL (0.72-1.25); POTASSIUM 3.8 mmol/L (3.5-5.1)
[2021-05-11] MEDS: CYANOCOBALAMIN 100 MCG TAB PO SCH (09:00)
[2021-05-11] MEDS ORDERED: FUROSEMIDE 40 MG TAB PO SCH (09:00)
[2021-05-11] MEDS: PANTOPRAZOLE SOD 40 MG TABEC PO SCH ×2 (13:32→17:27)
[2021-05-11] MEDS: APIXAB 2.5 MG TABLET PO SCH ×2 (13:32→17:27)
[2021-05-11] MEDS: BRIMONIDINE TARTRATE 0.15% OPTH DRPS 10ML BTL OP SCH ×2 (13:32→17:27)
[2021-05-11] MEDS: GEMFIBROZIL 600 MG TAB PO SCH ×2 (13:32→17:27)
[2021-05-11] MEDS: FERROUS SULFATE 325 MG TAB PO SCH (13:32)
[2021-05-11] MEDS: BISACODYL 5 MG TAB EC PO SCH (13:32)
[2021-05-11] MEDS: METOPROLOL TARTRATE 25 MG TAB PO SCH ×2 (13:33→21:00)
[2021-05-11] MEDS: MEMANTINE 10 MG TAB PO SCH ×2 (13:33→17:27)
[2021-05-11] MEDS: CHOLECALCIFEROL 1,000 UNIT TAB PO SCH (13:33)
[2021-05-11] MEDS: OLANZAPINE 5 MG TAB PO SCH (21:00)
[2021-05-11] MEDS: ATORVASTATIN 10 MG TAB PO SCH (21:12)
[2021-05-12] VITALS (8 sets, daily range): BP systolic 90–106; BP diastolic 60–70
[2021-05-12 06:32] LABS: BASOPHILS % 0.4 % (0.0-1.0); EOSINOPHILS # (AUTO) 0.3 (0.0-0.4); EOSINOPHILS % 6.4 % (0.0-6.0); HEMATOCRIT 28.1 % (38.2-49.6); HEMOGLOBIN 8.7 g/dL (14.0-18.0); LYMPHOCYTES # (AUTO) 1.1 (1.0-3.2); LYMPHOCYTES % 23.4 % (18.0-39.1); MEAN CORPUSCULAR HEMOGLOBIN 28.5 pg (28-32); MEAN CORPUSCULAR VOLUME 92.1 fL (81-99); MONOCYTES # (AUTO) 0.6 (0.2-0.8); MONOCYTES % 13.1 % (4.4-11.3); NEUTROPHILS # (AUTO) 2.6 (2.1-6.9); NEUTROPHILS % 56.3 % (38.7-80.0); PLATELET COUNT 126 x10e3/uL (140-360); RED BLOOD COUNT 3.05 x10e6/uL (4.3-5.7); RED CELL DISTRIBUTION WIDTH 15.5 % (11.7-14.4)
[2021-05-12 07:22] LABS: ALBUMIN 2.4 g/dL (3.5-5.0); ALBUMIN/GLOBULIN RATIO 0.5 (0.8-2.0); ALKALINE PHOSPHATASE 65 IU/L (40-150); ANION GAP 10.3 mmol/L (8-16); BLOOD UREA NITROGEN 80 mg/dL (7-26); BUN/CREATININE RATIO 43 (6-25); CALCIUM 8.9 mg/dL (8.4-10.2); CHLORIDE 86 mmol/L (98-107); CREATININE, SERUM 1.87 mg/dL (0.72-1.25); EST GLOMERULAR FILTRATION RATE 35 ML/MIN (60-); GLUCOSE 85 mg/dL (74-118); POTASSIUM 3.3 mmol/L (3.5-5.1); SODIUM 136 mmol/L (136-145)
[2021-05-12 07:25] LABS: ALANINE AMINOTRANSFERASE < 6 IU/L (0-55)
[2021-05-12 07:26] LABS: CARBON DIOXIDE 43 mmol/L (22-29)
[2021-05-12] MEDS: CYANOCOBALAMIN 100 MCG TAB PO SCH (09:00)
[2021-05-12] MEDS ORDERED: POTASSIUM CHLORIDE 20 MEQ TAB CR PO ONE (11:30)
[2021-05-12] MEDS: GEMFIBROZIL 600 MG TAB PO SCH ×2 (11:50→18:27)
[2021-05-12] MEDS: PANTOPRAZOLE SOD 40 MG TABEC PO SCH ×2 (11:50→18:27)
[2021-05-12] MEDS: FERROUS SULFATE 325 MG TAB PO SCH (11:51)
[2021-05-12] MEDS: BRIMONIDINE TARTRATE 0.15% OPTH DRPS 10ML BTL OP SCH ×2 (11:51→18:27)
[2021-05-12] MEDS: BISACODYL 5 MG TAB EC PO SCH (11:51)
[2021-05-12] MEDS: APIXAB 2.5 MG TABLET PO SCH ×2 (11:51→18:27)
[2021-05-12] MEDS: MEMANTINE 10 MG TAB PO SCH ×2 (11:53→18:27)
[2021-05-12] MEDS: CHOLECALCIFEROL 1,000 UNIT TAB PO SCH (11:53)
[2021-05-12] MEDS: METOPROLOL TARTRATE 25 MG TAB PO SCH (11:53)
[2021-05-12 16:00] LABS: FREE T4 (FREE THYROXINE) 0.8 ng/dL (0.8-1.8); THYROID STIMULATING HORMONE 0.979 uIU/mL (0.350-4.940)
[2021-05-12] MEDS ORDERED: METOPROLOL TARTRATE 25 MG TAB PO PRN (16:30)
[2021-05-12] MEDS: OLANZAPINE 5 MG TAB PO SCH (20:39)
[2021-05-12] MEDS: ATORVASTATIN 10 MG TAB PO SCH (20:39)
[2021-05-13] VITALS (10 sets, daily range): BP systolic 97–106; BP diastolic 60–70
[2021-05-13 06:50] LABS: BASOPHILS % 0.6 % (0.0-1.0); EOSINOPHILS # (AUTO) 0.5 (0.0-0.4); EOSINOPHILS % 10.5 % (0.0-6.0); HEMATOCRIT 28.4 % (38.2-49.6); HEMOGLOBIN 8.5 g/dL (14.0-18.0); LYMPHOCYTES # (AUTO) 1.1 (1.0-3.2); MEAN CORPUSCULAR HEMOGLOBIN 28.3 pg (28-32); MEAN CORPUSCULAR HGB CONC 29.9 g/dL (31-35); MEAN CORPUSCULAR VOLUME 94.7 fL (81-99); MONOCYTES # (AUTO) 0.6 (0.2-0.8); MONOCYTES % 12.8 % (4.4-11.3); NEUTROPHILS # (AUTO) 2.6 (2.1-6.9); NEUTROPHILS % 53.9 % (38.7-80.0); PLATELET COUNT 134 x10e3/uL (140-360); RED CELL DISTRIBUTION WIDTH 15.5 % (11.7-14.4)
[2021-05-13 07:30] LABS: ALBUMIN 2.4 g/dL (3.5-5.0); ALBUMIN/GLOBULIN RATIO 0.5 (0.8-2.0); ALKALINE PHOSPHATASE 58 IU/L (40-150); ANION GAP 8.6 mmol/L (8-16); BLOOD UREA NITROGEN 73 mg/dL (7-26); BUN/CREATININE RATIO 42 (6-25); CALCIUM 8.9 mg/dL (8.4-10.2); CHLORIDE 91 mmol/L (98-107); CREATININE, SERUM 1.72 mg/dL (0.72-1.25); EST GLOMERULAR FILTRATION RATE 38 ML/MIN (60-); GLUCOSE 83 mg/dL (74-118); MAGNESIUM 2.2 MG/DL (1.3-2.1); POTASSIUM 3.6 mmol/L (3.5-5.1); SODIUM 138 mmol/L (136-145)
[2021-05-13 07:34] LABS: ALANINE AMINOTRANSFERASE < 6 IU/L (0-55)
[2021-05-13 07:36] LABS: CARBON DIOXIDE 42 mmol/L (22-29)
[2021-05-13] MEDS: PANTOPRAZOLE SOD 40 MG TABEC PO SCH ×2 (08:51→17:45)
[2021-05-13] MEDS: GEMFIBROZIL 600 MG TAB PO SCH (08:52)
[2021-05-13] MEDS: APIXAB 2.5 MG TABLET PO SCH ×2 (08:52→17:45)
[2021-05-13] MEDS: CHOLECALCIFEROL 1,000 UNIT TAB PO SCH (08:52)
[2021-05-13] MEDS: BRIMONIDINE TARTRATE 0.15% OPTH DRPS 10ML BTL OP SCH ×2 (08:52→17:45)
[2021-05-13] MEDS: FERROUS SULFATE 325 MG TAB PO SCH (08:52)
[2021-05-13] MEDS: BISACODYL 5 MG TAB EC PO SCH (08:52)
[2021-05-13] MEDS: CYANOCOBALAMIN 100 MCG TAB PO SCH (08:53)
[2021-05-13] MEDS: MEMANTINE 10 MG TAB PO SCH ×2 (08:53→17:45)
[2021-05-13] MEDS ORDERED: SODIUM CHLORIDE 0.9% 1000ML 1,000 ML IV ONE (14:00)
[2021-05-13] MEDS: MEGESTROL ACETATE 40 MG TAB PO SCH (17:00)
[2021-05-13] MEDS: ATORVASTATIN 10 MG TAB PO SCH (20:48)
[2021-05-13] MEDS: OLANZAPINE 5 MG TAB PO SCH (20:48)
[2021-05-14] VITALS (9 sets, daily range): BP systolic 90–106; BP diastolic 54–68
[2021-05-14 05:42] LABS: CREATININE,URINE RANDOM 17.82 mg/dL (63-166); TOTAL PROTEIN, URINE 9.5 mg/dL (1-14)
[2021-05-14 07:14] LABS: BASOPHILS % 0.7 % (0.0-1.0); EOSINOPHILS # (AUTO) 0.5 (0.0-0.4); EOSINOPHILS % 8.2 % (0.0-6.0); HEMATOCRIT 30.8 % (38.2-49.6); LYMPHOCYTES % 18.2 % (18.0-39.1); MEAN CORPUSCULAR HEMOGLOBIN 28.6 pg (28-32); MEAN CORPUSCULAR HGB CONC 29.2 g/dL (31-35); MEAN CORPUSCULAR VOLUME 97.8 fL (81-99); MONOCYTES # (AUTO) 0.7 (0.2-0.8); MONOCYTES % 12.1 % (4.4-11.3); NEUTROPHILS # (AUTO) 3.4 (2.1-6.9); NEUTROPHILS % 60.4 % (38.7-80.0); PLATELET COUNT 147 x10e3/uL (140-360); RED BLOOD COUNT 3.15 x10e6/uL (4.3-5.7); RED CELL DISTRIBUTION WIDTH 15.8 % (11.7-14.4)
[2021-05-14 07:33] LABS: ALBUMIN 2.6 g/dL (3.5-5.0); ALBUMIN/GLOBULIN RATIO 0.6 (0.8-2.0); ALKALINE PHOSPHATASE 69 IU/L (40-150); ANION GAP 13.8 mmol/L (8-16); BLOOD UREA NITROGEN 61 mg/dL (7-26); BUN/CREATININE RATIO 37 (6-25); CARBON DIOXIDE 36 mmol/L (22-29); CHLORIDE 95 mmol/L (98-107); CREATININE, SERUM 1.65 mg/dL (0.72-1.25); EST GLOMERULAR FILTRATION RATE 40 ML/MIN (60-); GLUCOSE 93 mg/dL (74-118); POTASSIUM 3.8 mmol/L (3.5-5.1); SODIUM 141 mmol/L (136-145)
[2021-05-14 07:35] LABS: ALANINE AMINOTRANSFERASE < 6 IU/L (0-55)
[2021-05-14] MEDS: CYANOCOBALAMIN 100 MCG TAB PO SCH (07:53)
[2021-05-14] MEDS: FERROUS SULFATE 325 MG TAB PO SCH (08:25)
[2021-05-14] MEDS: BRIMONIDINE TARTRATE 0.15% OPTH DRPS 10ML BTL OP SCH ×2 (08:25→17:39)
[2021-05-14] MEDS: MEGESTROL ACETATE 40 MG TAB PO SCH ×2 (08:25→16:53)
[2021-05-14] MEDS: APIXAB 2.5 MG TABLET PO SCH ×2 (08:25→17:39)
[2021-05-14] MEDS: MEMANTINE 10 MG TAB PO SCH ×2 (08:25→17:39)
[2021-05-14] MEDS: CHOLECALCIFEROL 1,000 UNIT TAB PO SCH (08:25)
[2021-05-14] MEDS: BISACODYL 5 MG TAB EC PO SCH (08:25)
[2021-05-14] MEDS: PANTOPRAZOLE SOD 40 MG TABEC PO SCH ×2 (08:25→17:39)
[2021-05-14] MEDS: OLANZAPINE 5 MG TAB PO SCH (21:28)
[2021-05-14] MEDS: ATORVASTATIN 10 MG TAB PO SCH (21:28)
[2021-05-15] VITALS: BP 102/68
[2021-05-15 04:00] VITALS: BP 106/56
[2021-05-15 07:51] VITALS: BP 110/75
[2021-05-15 08:00] VITALS: BP 110/75
[2021-05-15] MEDS: MEGESTROL ACETATE 40 MG TAB PO SCH ×2 (09:00→18:12)
[2021-05-15] MEDS: CYANOCOBALAMIN 100 MCG TAB PO SCH (09:00)
[2021-05-15] MEDS: BISACODYL 5 MG TAB EC PO SCH (09:36)
[2021-05-15] MEDS: PANTOPRAZOLE SOD 40 MG TABEC PO SCH ×2 (09:36→18:12)
[2021-05-15] MEDS: BRIMONIDINE TARTRATE 0.15% OPTH DRPS 10ML BTL OP SCH ×2 (09:36→18:08)
[2021-05-15] MEDS: MEMANTINE 10 MG TAB PO SCH ×2 (09:37→18:12)
[2021-05-15] MEDS: CHOLECALCIFEROL 1,000 UNIT TAB PO SCH (09:37)
[2021-05-15] MEDS: FERROUS SULFATE 325 MG TAB PO SCH (09:37)
[2021-05-15] MEDS: APIXAB 2.5 MG TABLET PO SCH (09:37)
[2021-05-15 11:50] VITALS: BP 90/60
[2021-05-15 16:23] VITALS: BP 113/59
[2021-05-15] MEDS ORDERED: TAMSULOSIN HCL 0.4 MG CAP PO SCH (21:00)
== END 2021-05-15 18:18 | DRG 291 ==
LOC: ER 09:17 → ERHOLD 10:37 → MED/SURG3 15:55 → OBSVTOIN 05-08 09:33 → UNDODISIN 05-15 18:18
PROVIDERS: ADMIT Family Medicine; ATTEND Family Medicine
DX: I13.0 Hypertensive heart and chronic kidney disease with heart failure and stage 1 through stage 4 chronic kidney disease, or unspecified chronic kidney disease (principal); I50.33 Acute on chronic diastolic (congestive) heart failure; G93.41 Metabolic encephalopathy; N17.9 Acute kidney failure, unspecified; E23.2 Diabetes insipidus; E87.1 Hypo-osmolality and hyponatremia; N18.32 Chronic kidney disease, stage 3b; I48.91 Unspecified atrial fibrillation; I25.10 Atherosclerotic heart disease of native coronary artery without angina pectoris; Z85.46 Personal history of malignant neoplasm of prostate; Z88.5 Allergy status to narcotic agent; R53.81 Other malaise; E66.01 Morbid (severe) obesity due to excess calories; M19.90 Unspecified osteoarthritis, unspecified site; T83.098A Other mechanical complication of other urinary catheter, initial encounter; Z68.32 Body mass index [BMI] 32.0-32.9, adult; D64.9 Anemia, unspecified; Z20.822 Contact with and (suspected) exposure to COVID-19; F31.9 Bipolar disorder, unspecified; E78.5 Hyperlipidemia, unspecified
CPT/HCPCS: 36415; 51700; 70450; 71045; 76770; 80053; 81001; 82570; 82947; 82948; 83001; 83540; 83615; 83735; 83880; 83935; 84146; 84156; 84165; 84295; 84402; 84439; 84443; 84466; 84484; 84520; 85025; 86335; 93005; 93306; 93970; 94799; 97139; 99284; G0378; J1650; J1940; J2920; J7030; U0002

== ENCOUNTER 2021-06-06 09:39 | Emergency (ER) | payer MEDICARE, BC ==
[~2021-06-06] VITALS: Ht 190.5 cm; Wt 117.9 kg
[~2021-06-06 09:39] MED LIST changes: +AMITRIPTYLINE H25 MG PO; +BRIMONIDINE TART5 ML OU
[2021-06-06 10:25] LABS: BASOPHILS % 0.4 % (0.0-1.0); EOSINOPHILS # (AUTO) 0.2 (0.0-0.4); EOSINOPHILS % 2.8 % (0.0-6.0); HEMATOCRIT 32.7 % (38.2-49.6); LYMPHOCYTES # (AUTO) 1.6 (1.0-3.2); LYMPHOCYTES % 22.2 % (18.0-39.1); MEAN CORPUSCULAR HGB CONC 30.6 g/dL (31-35); MEAN CORPUSCULAR VOLUME 91.6 fL (81-99); MONOCYTES # (AUTO) 0.7 (0.2-0.8); MONOCYTES % 9.9 % (4.4-11.3); NEUTROPHILS # (AUTO) 4.5 (2.1-6.9); PLATELET COUNT 191 x10e3/uL (140-360); RED BLOOD COUNT 3.57 x10e6/uL (4.3-5.7); RED CELL DISTRIBUTION WIDTH 15.3 % (11.7-14.4)
[2021-06-06 10:40] LABS: CLARITY,URINE SL CLOUDY (CLEAR); COLOR,URINE YELLOW (YELLOW); KETONES,URINE NEGATIVE (NEGATIVE); LEUKOCYTE ESTERASE ,URINE SMALL (NEGATIVE); NITRITE,URINE NEGATIVE (NEGATIVE); PROTEIN,URINE DIPSTICK NEGATIVE (NEGATIVE); URINE UROBILINOGEN 0.2 mg/dL (0.2 - 1)
[2021-06-06 10:47] LABS: ALANINE AMINOTRANSFERASE 12 IU/L (0-55); ALBUMIN 2.7 g/dL (3.5-5.0); ALBUMIN/GLOBULIN RATIO 0.5 (0.8-2.0); ALKALINE PHOSPHATASE 79 IU/L (40-150); ANION GAP 16.3 mmol/L (8-16); BLOOD UREA NITROGEN 28 mg/dL (7-26); BUN/CREATININE RATIO 15 (6-25); CALCIUM 8.8 mg/dL (8.4-10.2); CARBON DIOXIDE 24 mmol/L (22-29); CHLORIDE 100 mmol/L (98-107); CREATINE KINASE 23 IU/L (30-200); CREATININE, SERUM 1.92 mg/dL (0.72-1.25); EST GLOMERULAR FILTRATION RATE 34 ML/MIN (60-); GLUCOSE 91 mg/dL (74-118); POTASSIUM 4.3 mmol/L (3.5-5.1); SODIUM 136 mmol/L (136-145)
[2021-06-06 10:58] LABS: CREATINE KINASE MB < 1.00 ng/mL (0-4.3)
[2021-06-06 10:58] LABS: BACTERIA,URINE MANY /HPF; EPITHELIAL CELLS,URINE FEW /LPF; RBC,URINE 21-50 /HPF (0-5); RENAL EPITHELIAL CELLS,URINE FEW; TRANSITIONAL EPI CELLS,URINE FEW; WBC,URINE (MAN) >50 /HPF (0-5)
[2021-06-06] MEDS ORDERED: CEFEPIME 1 GM in SODIUM CHLORIDE 0.9% 50ML 50 ML IV ONE (11:45)
[2021-06-06] MEDS ORDERED: SODIUM CHLORIDE 0.9% 500ML 500 ML IV ONE (12:45)
[2021-06-06 13:50] VITALS: BP 117/73
== END 2021-06-06 13:30 ==
LOC: ER 10:02
DX: N18.9 Chronic kidney disease, unspecified (principal); N39.0 Urinary tract infection, site not specified; Z20.822 Contact with and (suspected) exposure to COVID-19; I10 Essential (primary) hypertension; I50.9 Heart failure, unspecified; K21.9 Gastro-esophageal reflux disease without esophagitis; R94.31 Abnormal electrocardiogram [ECG] [EKG]; Z85.46 Personal history of malignant neoplasm of prostate; Z86.73 Personal history of transient ischemic attack (TIA), and cerebral infarction without residual deficits
CPT/HCPCS: 36415; 51700; 71045; 80053; 81001; 82550; 82553; 84484; 85025; 87086; 93005; 99283; J0692; J7040; U0002; 87186

== ENCOUNTER 2022-03-04 20:39 | Inpatient (IN) | payer MEDICARE, BC ==
[~2022-03-04] VITALS: Ht 185.4 cm; Wt 91.2 kg
[2022-03-04] MEDS ORDERED: ACETAMINOPHEN 1000 MG/100 ML IV STA (20:52)
[2022-03-04] MEDS ORDERED: SODIUM CHLORIDE 0.9% 500ML 500 ML IV ONE (21:00)
[2022-03-04 21:15] LABS: BASOPHILS % 0.4 % (0.0-1.0); EOSINOPHILS # (AUTO) 0.1 (0.0-0.4); EOSINOPHILS % 1.6 % (0.0-6.0); HEMATOCRIT 33.7 % (38.2-49.6); HEMOGLOBIN 10.3 g/dL (14.0-18.0); LYMPHOCYTES # (AUTO) 0.6 (1.0-3.2); MEAN CORPUSCULAR HGB CONC 30.6 g/dL (31-35); MEAN CORPUSCULAR VOLUME 101.5 fL (81-99); MONOCYTES # (AUTO) 0.9 (0.2-0.8); MONOCYTES % 15.4 % (4.4-11.3); NEUTROPHILS # (AUTO) 4.1 (2.1-6.9); NEUTROPHILS % 71.2 % (38.7-80.0); PLATELET COUNT 129 x10e3/uL (140-360); RED BLOOD COUNT 3.32 x10e6/uL (4.3-5.7); RED CELL DISTRIBUTION WIDTH 13.7 % (11.7-14.4)
[2022-03-04 21:41] LABS: ALBUMIN 3.7 g/dL (3.5-5.0); ALBUMIN/GLOBULIN RATIO 0.9 (0.8-2.0); CALCIUM 8.8 mg/dL (8.4-10.2)
[2022-03-04 21:47] LABS: CREATINE KINASE MB 0.6 ng/mL (0-5.0)
[2022-03-04 21:59] LABS: CREATININE, SERUM 2.07 mg/dL (0.72-1.25)
[2022-03-05] VITALS (10 sets, daily range): BP systolic 84–114; BP diastolic 57–79
[2022-03-05] MEDS ORDERED: ONDANSETRON HCL INJ 2MG/ML 2ML 2 MG/ML VIAL IV PRN
[2022-03-05] MEDS ORDERED: SODIUM CHLORIDE 0.9% 1000ML 1,000 ML IV ONE
[2022-03-05] MEDS ORDERED: SODIUM CHLORIDE 0.9% 1000ML 1,000 ML ONE (00:04)
[2022-03-05] MEDS ORDERED: ACETAMINOPHEN 325 MG TAB PO PRN (00:15)
[2022-03-05] MEDS ORDERED: ELIQUIS2.5 MG PO (01:51)
[2022-03-05] MEDS ORDERED: FLOMAX0.4 MG PO (01:52)
[2022-03-05] MEDS ORDERED: MYRBETRIQ50 MG (01:53)
[2022-03-05] MEDS ORDERED: LASIX20 MG PO (01:54)
[2022-03-05] MEDS ORDERED: MIDODRINE HCL5 MG PO (01:56)
[2022-03-05] MEDS ORDERED: PANTOPRAZOLE SO40 MG PO (01:56)
[2022-03-05 06:06] LABS: BASOPHILS % 0.2 % (0.0-1.0); EOSINOPHILS % 0.5 % (0.0-6.0); HEMATOCRIT 30.5 % (38.2-49.6); HEMOGLOBIN 9.3 g/dL (14.0-18.0); LYMPHOCYTES # (AUTO) 0.3 (1.0-3.2); LYMPHOCYTES % 7.7 % (18.0-39.1); MEAN CORPUSCULAR HGB CONC 30.5 g/dL (31-35); MEAN CORPUSCULAR VOLUME 101.7 fL (81-99); MONOCYTES # (AUTO) 0.2 (0.2-0.8); MONOCYTES % 4.4 % (4.4-11.3); NEUTROPHILS # (AUTO) 3.7 (2.1-6.9); PLATELET COUNT 113 x10e3/uL (140-360); RED CELL DISTRIBUTION WIDTH 13.6 % (11.7-14.4)
[2022-03-05 06:44] LABS: ALBUMIN 3.1 g/dL (3.5-5.0); ALBUMIN/GLOBULIN RATIO 0.9 (0.8-2.0); ANION GAP 12.8 mmol/L (8-16); CALCIUM 8.4 mg/dL (8.4-10.2); CREATININE, SERUM 2.05 mg/dL (0.72-1.25); POTASSIUM 3.8 mmol/L (3.5-5.1)
[2022-03-05 06:51] LABS: CREATINE KINASE MB 2.1 ng/mL (0-5.0)
[2022-03-05 09:42] LABS: BAND NEUTROPHILS % (MANUAL) 3 %; EOSINOPHILS % (MANUAL) 2 % (0-7); LYMPHOCYTES % (MANUAL) 9 % (19-48); MONOCYTES % (MANUAL) 5 % (3.4-9.0); NEUTROPHILS % (MANUAL) 81 % (40-74); PLATELET ESTIMATE SLIGHTLY DECREASED; PLATELET MORPHOLOGY COMMENT NORMAL; RBC MORPHOLOGY COMMENT NORMAL
[2022-03-05] MEDS: METOPROLOL TARTRATE 25 MG TAB PO SCH ×2 (10:30→21:06)
[2022-03-05] MEDS: MIDODRINE HCL 5 MG TABLET PO SCH ×2 (12:14→16:08)
[2022-03-05 14:45] LABS: CREATINE KINASE MB 2.7 ng/mL (0-5.0)
[2022-03-05 15:16] LABS: CLARITY,URINE HAZY (CLEAR); COLOR,URINE YELLOW (YELLOW); KETONES,URINE NEGATIVE (NEGATIVE); LEUKOCYTE ESTERASE ,URINE MODERATE (NEGATIVE); NITRITE,URINE NEGATIVE (NEGATIVE); PROTEIN,URINE DIPSTICK 1+ (NEGATIVE); URINE UROBILINOGEN 0.2 mg/dL (0.2 - 1)
[2022-03-05 15:28] LABS: WBC,URINE (MAN) >50 /HPF (0-5)
[2022-03-05 15:29] LABS: BACTERIA,URINE MODERATE /HPF
[2022-03-05] MEDS: APIXAB 2.5 MG TABLET PO SCH (16:08)
[2022-03-05] MEDS ORDERED: METOPROLOL TARTRATE 50 MG TAB PO SCH (18:15)
[2022-03-05] MEDS: TAMSULOSIN HCL 0.4 MG CAP PO SCH (21:06)
[2022-03-05] MEDS: ATORVASTATIN 10 MG TAB PO SCH (21:06)
[2022-03-06] VITALS (7 sets, daily range): BP systolic 102–129; BP diastolic 59–78
[2022-03-06] MEDS: MIDODRINE HCL 5 MG TABLET PO SCH ×3 (08:00→16:00)
[2022-03-06] MEDS ORDERED: APIXAB 2.5 MG TABLET PO SCH (09:00)
[2022-03-06] MEDS ORDERED: CYANOCOBALAMIN 100 MCG TAB PO SCH (09:00)
[2022-03-06] MEDS ORDERED: MIDODRINE HCL 5 MG TABLET PO SCH (09:00)
[2022-03-06] MEDS: METOPROLOL TARTRATE 25 MG TAB PO SCH ×2 (09:00→22:03)
[2022-03-06] MEDS: MEMANTINE 10 MG TAB PO SCH ×2 (09:01→17:18)
[2022-03-06] MEDS: PANTOPRAZOLE SOD 40 MG TABEC PO SCH (09:01)
[2022-03-06] MEDS: FUROSEMIDE 20 MG TAB PO SCH (09:01)
[2022-03-06] MEDS: APIXAB 2.5 MG TABLET PO SCH ×2 (09:01→17:18)
[2022-03-06] MEDS: BISACODYL 5 MG TAB EC PO SCH (09:01)
[2022-03-06] MEDS: BRIMONIDINE TARTRATE (OPTH) 5 ML LIQD OP SCH ×2 (09:02→17:18)
[2022-03-06] MEDS ORDERED: ONDANSETRON HCL 4 MG ORAL DISINTEGRATING TAB PO PRN (13:45)
[2022-03-06] MEDS: TAMSULOSIN HCL 0.4 MG CAP PO SCH (22:02)
[2022-03-06] MEDS: ATORVASTATIN 10 MG TAB PO SCH (22:02)
[2022-03-07] MEDS: PANTOPRAZOLE SOD 40 MG TABEC PO SCH (07:30)
[2022-03-07 07:54] VITALS: BP 126/74
[2022-03-07] MEDS: MIDODRINE HCL 5 MG TABLET PO SCH ×3 (08:00→16:00)
[2022-03-07 09:00] VITALS: BP 126/74
[2022-03-07] MEDS: FUROSEMIDE 20 MG TAB PO SCH (09:00)
[2022-03-07] MEDS: BISACODYL 5 MG TAB EC PO SCH (09:00)
[2022-03-07] MEDS: METOPROLOL TARTRATE 25 MG TAB PO SCH (09:00)
[2022-03-07] MEDS: MEMANTINE 10 MG TAB PO SCH ×2 (09:00→16:42)
[2022-03-07] MEDS: BRIMONIDINE TARTRATE (OPTH) 5 ML LIQD OP SCH ×2 (09:00→16:47)
[2022-03-07] MEDS: APIXAB 2.5 MG TABLET PO SCH ×2 (11:00→16:42)
[2022-03-07 12:14] VITALS: BP 130/77
[2022-03-07 15:58] VITALS: BP 124/85
== END 2022-03-07 18:41 | disposition home or self-care (01) | DRG 689 ==
LOC: ER 20:45 → ERHOLD 23:51 → MED/SURG3 03-05 02:05
PROVIDERS: ADMIT Family Medicine; ATTEND Family Medicine
DX: N39.0 Urinary tract infection, site not specified (principal); G93.41 Metabolic encephalopathy; I48.20 Chronic atrial fibrillation, unspecified; E23.2 Diabetes insipidus; I13.0 Hypertensive heart and chronic kidney disease with heart failure and stage 1 through stage 4 chronic kidney disease, or unspecified chronic kidney disease; I50.32 Chronic diastolic (congestive) heart failure; R53.1 Weakness; I25.10 Atherosclerotic heart disease of native coronary artery without angina pectoris; N18.9 Chronic kidney disease, unspecified; Z86.73 Personal history of transient ischemic attack (TIA), and cerebral infarction without residual deficits; Z85.46 Personal history of malignant neoplasm of prostate; Z96.653 Presence of artificial knee joint, bilateral; Z88.5 Allergy status to narcotic agent; Z20.822 Contact with and (suspected) exposure to COVID-19
CPT/HCPCS: 36415; 71045; 80053; 81001; 82550; 82553; 83605; 83880; 84484; 85025; 87040; 87086; 87400; 93005; 94799; 99284; J0696; J7030; J7040

== ENCOUNTER 2022-08-24 20:27 | Inpatient (IN) | payer MEDICARE, BC ==
[~2022-08-24] VITALS: Ht 185.4 cm; Wt 93.0 kg
[~2022-08-24 20:27] MED LIST changes: +CIPROFLOXACIN 0.3% OS; +DEXAMETHASONE SOD PHOS INJ 4 MG/ML SDV ONE; +ELIQUIS2.5 MG PO; +FLOMAX0.4 MG PO; +KETOROLAC TROMETHAMINE 30 MG/ML VIAL ONE; +LASIX20 MG PO; +LIDOCAINE HCL 2% LOCAL INJ 5 ML SDV VIAL INJ ONE; +MIDODRINE HCL5 MG PO; +MYRBETRIQ50 MG PO; +PANTOPRAZOLE SO40 MG PO; +POVIDONE IODINE 0.05% 0.05 % ML PO ONE; +PREDNISOLONE ACE5 M1 OS; +PROPOFOL IV EMULSION 10 MG/ML 20 ML VIAL ONE; +ROCURONIUM BROMIDE 10 MG/ML 5ML VIAL IV ONE; +SUCCINYLCHOLINE CHLORIDE 20 MG/ML 10ML VIAL ONE
[2022-08-24] MEDS ORDERED: SODIUM CHLORIDE 0.9% 500ML 500 ML IV ONE (21:15)
[2022-08-24 21:23] LABS: BASOPHILS % 0.3 % (0.0-1.0); EOSINOPHILS # (AUTO) 0.3 (0.0-0.4); HEMOGLOBIN 10.7 g/dL (14.0-18.0); LYMPHOCYTES # (AUTO) 1.4 (1.0-3.2); MEAN CORPUSCULAR HEMOGLOBIN 30.7 pg (28-32); MEAN CORPUSCULAR HGB CONC 31.5 g/dL (31-35); MEAN CORPUSCULAR VOLUME 97.4 fL (81-99); MONOCYTES # (AUTO) 0.7 (0.2-0.8); MONOCYTES % 10.3 % (4.4-11.3); NEUTROPHILS # (AUTO) 4.2 (2.1-6.9); NEUTROPHILS % 64.1 % (38.7-80.0); PLATELET COUNT 110 x10e3/uL (140-360); RED BLOOD COUNT 3.49 x10e6/uL (4.3-5.7); RED CELL DISTRIBUTION WIDTH 14.3 % (11.7-14.4)
[2022-08-24] MEDS ORDERED: FUROSEMIDE20 MG PO (21:31)
[2022-08-24] MEDS ORDERED: MIDODRINE HCL10 MG PO (21:31)
[2022-08-24] MEDS ORDERED: OLANZAPINE5 MG PO (21:31)
[2022-08-24 21:41] LABS: ALBUMIN 3.9 g/dL (3.5-5.0); ANION GAP 13.5 mmol/L (8-16); CALCIUM 9.6 mg/dL (8.4-10.2); CREATININE, SERUM 2.18 mg/dL (0.72-1.25); POTASSIUM 4.5 mmol/L (3.5-5.1)
[2022-08-24] MEDS ORDERED: ONDANSETRON HCL INJ 2MG/ML 2ML 2 MG/ML VIAL IV PRN (22:15)
[2022-08-24] MEDS: SODIUM CHLORIDE 0.9% 1000ML 1,000 ML IV SCH (23:24)
[2022-08-25] VITALS (12 sets, daily range): BP systolic 107–162; BP diastolic 72–94
[2022-08-25] MEDS ORDERED: HYDRALAZINE HCL 20 MG/ML VIAL IV PRN (04:30)
[2022-08-25] MEDS: METOPROLOL TARTRATE 25 MG TAB PO SCH ×2 (04:30→14:25)
[2022-08-25 06:21] LABS: BASOPHILS % 0.4 % (0.0-1.0); EOSINOPHILS # (AUTO) 0.2 (0.0-0.4); EOSINOPHILS % 4.4 % (0.0-6.0); HEMATOCRIT 30.6 % (38.2-49.6); HEMOGLOBIN 9.9 g/dL (14.0-18.0); LYMPHOCYTES # (AUTO) 1.3 (1.0-3.2); LYMPHOCYTES % 23.1 % (18.0-39.1); MEAN CORPUSCULAR HEMOGLOBIN 31.2 pg (28-32); MEAN CORPUSCULAR HGB CONC 32.4 g/dL (31-35); MEAN CORPUSCULAR VOLUME 96.5 fL (81-99); MONOCYTES # (AUTO) 0.6 (0.2-0.8); MONOCYTES % 10.4 % (4.4-11.3); NEUTROPHILS # (AUTO) 3.3 (2.1-6.9); NEUTROPHILS % 61.5 % (38.7-80.0); PLATELET COUNT 104 x10e3/uL (140-360); RED BLOOD COUNT 3.17 x10e6/uL (4.3-5.7)
[2022-08-25] MEDS: SODIUM CHLORIDE 0.9% 1000ML 1,000 ML IV SCH ×2 (06:30→14:15)
[2022-08-25 06:38] LABS: ANION GAP 9.8 mmol/L (8-16); CALCIUM 8.8 mg/dL (8.4-10.2); CREATININE, SERUM 1.79 mg/dL (0.72-1.25); POTASSIUM 3.8 mmol/L (3.5-5.1)
[2022-08-25 07:44] LABS: ALBUMIN 3.5 g/dL (3.5-5.0)
[2022-08-25] MEDS: MEMANTINE 10 MG TAB PO SCH ×2 (09:00→16:43)
[2022-08-25] MEDS: PANTOPRAZOLE SOD 40 MG TABEC PO SCH ×2 (09:00→16:43)
[2022-08-25] MEDS: OLANZAPINE 5 MG TAB PO SCH ×2 (09:00→20:58)
[2022-08-25] MEDS ORDERED: FUROSEMIDE 20 MG TAB PO SCH (09:00)
[2022-08-25] MEDS ORDERED: CYANOCOBALAMIN 1,000 MCG TAB PO SCH (09:00)
[2022-08-25] MEDS: CHOLECALCIFEROL 1,000 UNIT TAB PO SCH (09:00)
[2022-08-25] MEDS ORDERED: BOTULINUM TOXIN TYPE A 100 UNIT VIAL IM ONE (10:33)
[2022-08-25] MEDS ORDERED: SUGAMMADEX SODIUM 200 MG/2 ML VIAL IV ONE ×2 (12:04→12:11)
[2022-08-25] MEDS: ATORVASTATIN 10 MG TAB PO SCH (20:51)
[2022-08-25] MEDS: TAMSULOSIN HCL 0.4 MG CAP PO SCH (20:51)
[2022-08-26] VITALS (9 sets, daily range): BP systolic 129–149; BP diastolic 69–95
[2022-08-26] MEDS: METOPROLOL TARTRATE 25 MG TAB PO SCH ×2 (08:13→21:19)
[2022-08-26] MEDS: MEMANTINE 10 MG TAB PO SCH ×2 (08:13→16:29)
[2022-08-26] MEDS: CHOLECALCIFEROL 1,000 UNIT TAB PO SCH (08:14)
[2022-08-26] MEDS: CYANOCOBALAMIN 1,000 MCG TAB PO SCH (08:14)
[2022-08-26] MEDS: PANTOPRAZOLE SOD 40 MG TABEC PO SCH ×2 (08:14→16:29)
[2022-08-26] MEDS: FUROSEMIDE 20 MG TAB PO SCH (08:26)
[2022-08-26] MEDS: TAMSULOSIN HCL 0.4 MG CAP PO SCH (21:19)
[2022-08-26] MEDS: OLANZAPINE 5 MG TAB PO SCH (21:20)
[2022-08-26] MEDS: ATORVASTATIN 10 MG TAB PO SCH (21:20)
[2022-08-27 00:13] VITALS: BP 132/69
[2022-08-27 02:03] VITALS: BP 124/84
[2022-08-27 08:00] VITALS: BP 147/80
[2022-08-27] MEDS: METOPROLOL TARTRATE 25 MG TAB PO SCH (10:56)
[2022-08-27] MEDS: FUROSEMIDE 20 MG TAB PO SCH (10:56)
[2022-08-27] MEDS: PANTOPRAZOLE SOD 40 MG TABEC PO SCH ×2 (10:57→17:38)
[2022-08-27] MEDS: CYANOCOBALAMIN 1,000 MCG TAB PO SCH (10:57)
[2022-08-27] MEDS: MEMANTINE 10 MG TAB PO SCH ×2 (10:57→17:38)
[2022-08-27] MEDS: CHOLECALCIFEROL 1,000 UNIT TAB PO SCH (10:57)
[2022-08-27] MEDS: TAMSULOSIN HCL 0.4 MG CAP PO SCH (11:02)
[2022-08-27 11:11] VITALS: BP 147/80
[2022-08-27 12:12] VITALS: BP 117/76
[2022-08-27] MEDS ORDERED: ONDANSETRON HCL 4 MG ORAL DISINTEGRATING TAB PO PRN (13:30)
[2022-08-27 16:24] VITALS: BP 134/84
[2022-08-27] MEDS ORDERED: OLANZAPINE 5 MG TAB PO SCH (21:00)
[2022-08-28] MEDS ORDERED: TAMSULOSIN HCL 0.4 MG CAP PO SCH (09:00)
== END 2022-08-27 18:03 | disposition home or self-care (01) | DRG 392 ==
LOC: ER 20:30 → ERHOLD 22:15 → MED/SURG 08-25 00:16 → OBSVTOIN 08-25 12:29
PROVIDERS: ADMIT Family Medicine; ATTEND Family Medicine
PROC: 0DC58ZZ Extirpation of Matter from Esophagus, Via Natural or Artificial Opening Endoscopic (ICD-10-PCS; principal; 2022-08-25 10:34)
DX: K22.0 Achalasia of cardia (principal); I13.0 Hypertensive heart and chronic kidney disease with heart failure and stage 1 through stage 4 chronic kidney disease, or unspecified chronic kidney disease; R13.10 Dysphagia, unspecified; I50.9 Heart failure, unspecified; I48.91 Unspecified atrial fibrillation; G20 Parkinson's disease; D63.1 Anemia in chronic kidney disease; C61 Malignant neoplasm of prostate; F29 Unspecified psychosis not due to a substance or known physiological condition; I45.10 Unspecified right bundle-branch block; N18.30 Chronic kidney disease, stage 3 unspecified; E78.00 Pure hypercholesterolemia, unspecified; K21.9 Gastro-esophageal reflux disease without esophagitis; K44.9 Diaphragmatic hernia without obstruction or gangrene; Z96.659 Presence of unspecified artificial knee joint
CPT/HCPCS: 36415; 43239; 71046; 80053; 82948; 85025; 93005; 99284; G0378; J0330; J0587; J1100; J1885; J2001; J7030; J7040

== ENCOUNTER 2022-09-14 18:01 | Emergency (ER) | payer MEDICARE, BC ==
[~2022-09-14] VITALS: Ht 368.3 cm; Wt 93.0 kg
[~2022-09-14 18:01] MED LIST changes: -DEXAMETHASONE SOD PHOS INJ 4 MG/ML SDV ONE; +FUROSEMIDE20 MG PO; -KETOROLAC TROMETHAMINE 30 MG/ML VIAL ONE; -LIDOCAINE HCL 2% LOCAL INJ 5 ML SDV VIAL INJ ONE; +MIDODRINE HCL10 MG PO; +OLANZAPINE5 MG PO; -POVIDONE IODINE 0.05% 0.05 % ML PO ONE; -PROPOFOL IV EMULSION 10 MG/ML 20 ML VIAL ONE; -ROCURONIUM BROMIDE 10 MG/ML 5ML VIAL IV ONE; -SUCCINYLCHOLINE CHLORIDE 20 MG/ML 10ML VIAL ONE
[2022-09-14 19:52] LABS: BASOPHILS % 0.4 % (0.0-1.0); EOSINOPHILS # (AUTO) 0.3 (0.0-0.4); EOSINOPHILS % 5.2 % (0.0-6.0); HEMATOCRIT 32.7 % (38.2-49.6); HEMOGLOBIN 10.2 g/dL (14.0-18.0); LYMPHOCYTES # (AUTO) 1.4 (1.0-3.2); LYMPHOCYTES % 24.8 % (18.0-39.1); MEAN CORPUSCULAR HGB CONC 31.2 g/dL (31-35); MEAN CORPUSCULAR VOLUME 99.4 fL (81-99); MONOCYTES # (AUTO) 0.6 (0.2-0.8); MONOCYTES % 10.6 % (4.4-11.3); NEUTROPHILS # (AUTO) 3.3 (2.1-6.9); NEUTROPHILS % 58.8 % (38.7-80.0); PLATELET COUNT 122 x10e3/uL (140-360); RED BLOOD COUNT 3.29 x10e6/uL (4.3-5.7)
[2022-09-14 20:12] LABS: ANION GAP 14.2 mmol/L (8-16); CALCIUM 9.3 mg/dL (8.4-10.2); CREATININE, SERUM 2.35 mg/dL (0.72-1.25); POTASSIUM 5.2 mmol/L (3.5-5.1)
[2022-09-14 20:43] VITALS: O2SAT 100
== END 2022-09-14 20:46 | disposition home or self-care (01) ==
LOC: ER 18:10
DX: E87.5 Hyperkalemia (principal); N18.9 Chronic kidney disease, unspecified; I10 Essential (primary) hypertension; I50.9 Heart failure, unspecified; I48.91 Unspecified atrial fibrillation; K21.9 Gastro-esophageal reflux disease without esophagitis; D64.9 Anemia, unspecified; G20 Parkinson's disease; F20.9 Schizophrenia, unspecified; Z85.46 Personal history of malignant neoplasm of prostate
CPT/HCPCS: 36415; 80048; 85025; 99283

== ENCOUNTER 2023-04-29 10:39 | Inpatient (IN) | payer MEDICARE, BC ==
[~2023-04-29] VITALS: Ht 185.4 cm; Wt 93.0 kg
[2023-04-29 12:35] LABS: BASOPHILS % 0.2 % (0.0-1.0); EOSINOPHILS # (AUTO) 0.1 (0.0-0.4); EOSINOPHILS % 1.5 % (0.0-6.0); HEMATOCRIT 28.6 % (38.2-49.6); HEMOGLOBIN 8.9 g/dL (14.0-18.0); LYMPHOCYTES # (AUTO) 0.8 (1.0-3.2); LYMPHOCYTES % 14.3 % (18.0-39.1); MEAN CORPUSCULAR HEMOGLOBIN 29.5 pg (28-32); MEAN CORPUSCULAR HGB CONC 31.1 g/dL (31-35); MEAN CORPUSCULAR VOLUME 94.7 fL (81-99); MONOCYTES # (AUTO) 1.2 (0.2-0.8); MONOCYTES % 23.2 % (4.4-11.3); NEUTROPHILS # (AUTO) 3.2 (2.1-6.9); NEUTROPHILS % 60.6 % (38.7-80.0); PLATELET COUNT 91 x10e3/uL (140-360); RED BLOOD COUNT 3.02 x10e6/uL (4.3-5.7); RED CELL DISTRIBUTION WIDTH 13.8 % (11.7-14.4); WHITE BLOOD COUNT 5.26 x10e3/uL (4.8-10.8)
[2023-04-29 12:49] LABS: ALBUMIN 3.7 g/dL (3.5-5.0); ALBUMIN/GLOBULIN RATIO 1.1 (0.8-2.0); ANION GAP 14.4 mmol/L (8-16); BILIRUBIN,TOTAL 0.7 mg/dL (0.2-1.2); CALCIUM 8.6 mg/dL (8.4-10.2); CREATININE, SERUM 1.59 mg/dL (0.72-1.25); POTASSIUM 4.4 mmol/L (3.5-5.1); TOTAL PROTEIN 7.1 g/dL (6.5-8.1)
[2023-04-29 12:55] LABS: TROPONIN I 0.025 ng/mL (0-0.300)
[2023-04-29] MEDS ORDERED: SODIUM CHLORIDE FLUSH 10 ML SYR INJ PRN (13:45)
[2023-04-29] MEDS ORDERED: FUROSEMIDE INJ 10 MG/ML 2 ML VIAL IV ONE (14:00)
[2023-04-29 14:55] LABS: TROPONIN I 0.018 ng/mL (0-0.300)
[2023-04-29 15:33] LABS: CLARITY,URINE CLEAR (CLEAR); COLOR,URINE YELLOW (YELLOW); PH,URINE 7 (5 - 7)
[2023-04-29 15:34] LABS: BILIRUBIN,URINE NEGATIVE (NEGATIVE); GLUCOSE, URINE NEGATIVE (NEGATIVE); KETONES,URINE NEGATIVE (NEGATIVE); LEUKOCYTE ESTERASE ,URINE NEGATIVE (NEGATIVE); NITRITE,URINE NEGATIVE (NEGATIVE); PROTEIN,URINE DIPSTICK TRACE (NEGATIVE); URINE UROBILINOGEN 0.2 mg/dL (0.2 - 1)
[2023-04-29 15:39] LABS: WBC,URINE (MAN) 0-5 /HPF (0-5)
[2023-04-29 17:07] VITALS: BP 149/86; PULSE 74; RESP 21; TEMP 98; O2SAT 96
[2023-04-29] MEDS: FUROSEMIDE INJ 10 MG/ML 2 ML VIAL IV SCH (18:25)
[2023-04-29 20:00] VITALS: BP 130/71; PULSE 66; RESP 19; TEMP 97.6; TEMP 97.8; O2SAT 94
[2023-04-30] VITALS (11 sets, daily range): BP systolic 115–147; BP diastolic 69–92; PULSE 66–90; RESP 14–22; TEMP 97.3–97.9; O2SAT 94–99
[2023-04-30 05:27] LABS: BASOPHILS % 0.2 % (0.0-1.0); EOSINOPHILS # (AUTO) 0.1 (0.0-0.4); EOSINOPHILS % 3.5 % (0.0-6.0); HEMATOCRIT 29.2 % (38.2-49.6); HEMOGLOBIN 9.5 g/dL (14.0-18.0); LYMPHOCYTES # (AUTO) 0.7 (1.0-3.2); LYMPHOCYTES % 16.9 % (18.0-39.1); MEAN CORPUSCULAR HEMOGLOBIN 30.3 pg (28-32); MEAN CORPUSCULAR HGB CONC 32.5 g/dL (31-35); MONOCYTES % 25.6 % (4.4-11.3); NEUTROPHILS # (AUTO) 2.1 (2.1-6.9); NEUTROPHILS % 53.3 % (38.7-80.0); PLATELET COUNT 85 x10e3/uL (140-360); RED BLOOD COUNT 3.14 x10e6/uL (4.3-5.7); RED CELL DISTRIBUTION WIDTH 14.1 % (11.7-14.4); WHITE BLOOD COUNT 4.02 x10e3/uL (4.8-10.8)
[2023-04-30 05:50] LABS: ANION GAP 15.7 mmol/L (8-16); CALCIUM 8.9 mg/dL (8.4-10.2); CREATININE, SERUM 1.56 mg/dL (0.72-1.25); POTASSIUM 3.7 mmol/L (3.5-5.1)
[2023-04-30 06:31] LABS: TROPONIN I 0.025 ng/mL (0-0.300)
[2023-04-30] MEDS: FUROSEMIDE INJ 10 MG/ML 2 ML VIAL IV SCH ×2 (10:26→17:19)
[2023-04-30] MEDS ORDERED: DOCUSATE SODIUM 100 MG CAP PO ONE (14:30)
[2023-04-30 15:28] LABS: TROPONIN I 0.017 ng/mL (0-0.300)
[2023-04-30] MEDS: METOPROLOL TARTRATE 25 MG TAB PO SCH (18:40)
[2023-04-30] MEDS: ATORVASTATIN 10 MG TAB PO SCH (22:49)
[2023-04-30] MEDS ORDERED: SODIUM CHLORIDE 0.9% 250ML 250 ML ONE (22:59)
[2023-05-01] VITALS (8 sets, daily range): BP systolic 91–148; BP diastolic 49–86; PULSE 68–85; RESP 17–18; TEMP 97.8–98.9; O2SAT 96–99
[2023-05-01] MEDS: METOPROLOL TARTRATE 25 MG TAB PO SCH ×2 (05:01→16:59)
[2023-05-01 05:38] LABS: BASOPHILS % 0.2 % (0.0-1.0); EOSINOPHILS # (AUTO) 0.2 (0.0-0.4); EOSINOPHILS % 3.9 % (0.0-6.0); HEMATOCRIT 27.5 % (38.2-49.6); HEMOGLOBIN 8.8 g/dL (14.0-18.0); LYMPHOCYTES # (AUTO) 0.8 (1.0-3.2); LYMPHOCYTES % 17.1 % (18.0-39.1); MEAN CORPUSCULAR HEMOGLOBIN 29.9 pg (28-32); MEAN CORPUSCULAR VOLUME 93.5 fL (81-99); MONOCYTES # (AUTO) 1.1 (0.2-0.8); MONOCYTES % 21.6 % (4.4-11.3); NEUTROPHILS # (AUTO) 2.8 (2.1-6.9); PLATELET COUNT 87 x10e3/uL (140-360); RED BLOOD COUNT 2.94 x10e6/uL (4.3-5.7); RED CELL DISTRIBUTION WIDTH 13.6 % (11.7-14.4); WHITE BLOOD COUNT 4.86 x10e3/uL (4.8-10.8)
[2023-05-01 06:03] LABS: ANION GAP 13.4 mmol/L (8-16); CALCIUM 8.7 mg/dL (8.4-10.2); CREATININE, SERUM 1.54 mg/dL (0.72-1.25)
[2023-05-01 06:06] LABS: POTASSIUM 3.4 mmol/L (3.5-5.1)
[2023-05-01 07:47] LABS: EOSINOPHILS % (MANUAL) 3 % (0-7); LYMPHOCYTES % (MANUAL) 21 % (19-48); MONOCYTES % (MANUAL) 16 % (3.4-9.0); NEUTROPHILS % (MANUAL) 57 % (40-74); REACTIVE LYMPHOCYTES 3
[2023-05-01 07:48] LABS: PLATELET ESTIMATE MODERATELY DECREASED; PLATELET MORPHOLOGY COMMENT NORMAL; RBC MORPHOLOGY COMMENT NORMAL
[2023-05-01] MEDS: CYANOCOBALAMIN 100 MCG TAB PO SCH (09:00)
[2023-05-01] MEDS: CHOLECALCIFEROL 1,000 UNIT TAB PO SCH (09:36)
[2023-05-01] MEDS: MEMANTINE 10 MG TAB PO SCH ×2 (09:36→16:57)
[2023-05-01] MEDS: OLANZAPINE 5 MG TAB PO SCH (09:37)
[2023-05-01] MEDS: FUROSEMIDE INJ 10 MG/ML 2 ML VIAL IV SCH ×2 (09:37→17:00)
[2023-05-01] MEDS: APIXAB 2.5 MG TABLET PO SCH ×2 (09:37→16:57)
[2023-05-01] MEDS: BISACODYL 5 MG TAB EC PO SCH (09:37)
[2023-05-01] MEDS: TAMSULOSIN HCL 0.4 MG CAP PO SCH (09:37)
[2023-05-01] MEDS: PANTOPRAZOLE SOD 40 MG TABEC PO SCH ×2 (09:37→16:57)
[2023-05-01] MEDS ORDERED: LORAZEPAM 0.5 MG TAB PO PRN (19:15)
[2023-05-01] MEDS: ATORVASTATIN 10 MG TAB PO SCH (21:00)
[2023-05-01] MEDS ORDERED: SODIUM CHLORIDE 0.9% 250ML 250 ML IV ONE (23:30)
[2023-05-02] VITALS (13 sets, daily range): BP systolic 100–148; BP diastolic 49–88; PULSE 64–89; RESP 17–23; TEMP 97.5–98.8; O2SAT 95–100
[2023-05-02] MEDS: METOPROLOL TARTRATE 25 MG TAB PO SCH ×2 (06:30→16:38)
[2023-05-02] MEDS: ALBUTEROL/IPRATROPIUM 3 ML NEB NEB SCH ×4 (07:54→19:14)
[2023-05-02] MEDS: CYANOCOBALAMIN 100 MCG TAB PO SCH (09:00)
[2023-05-02] MEDS: MEMANTINE 10 MG TAB PO SCH ×2 (10:08→16:38)
[2023-05-02] MEDS: APIXAB 2.5 MG TABLET PO SCH ×2 (10:08→16:38)
[2023-05-02] MEDS: TAMSULOSIN HCL 0.4 MG CAP PO SCH (10:08)
[2023-05-02] MEDS: CHOLECALCIFEROL 1,000 UNIT TAB PO SCH (10:08)
[2023-05-02] MEDS: PANTOPRAZOLE SOD 40 MG TABEC PO SCH ×2 (10:09→16:37)
[2023-05-02] MEDS: OLANZAPINE 5 MG TAB PO SCH (10:09)
[2023-05-02] MEDS: BISACODYL 5 MG TAB EC PO SCH (10:09)
[2023-05-02] MEDS: FUROSEMIDE INJ 10 MG/ML 2 ML VIAL IV SCH ×2 (10:10→16:37)
[2023-05-02] MEDS: ATORVASTATIN 10 MG TAB PO SCH (21:37)
[2023-05-02] MEDS: MELATONIN 5 MG TABLET PO PRN (22:39)
[2023-05-03] VITALS (13 sets, daily range): BP systolic 92–131; BP diastolic 58–86; PULSE 74–98; RESP 17–19; TEMP 97.2–98; O2SAT 91–100
[2023-05-03] MEDS: ALBUTEROL/IPRATROPIUM 3 ML NEB NEB SCH ×4 (01:24→19:29)
[2023-05-03 06:20] LABS: BASOPHILS % 0.3 % (0.0-1.0); EOSINOPHILS # (AUTO) 0.2 (0.0-0.4); EOSINOPHILS % 6.1 % (0.0-6.0); HEMOGLOBIN 9.4 g/dL (14.0-18.0); LYMPHOCYTES # (AUTO) 1.1 (1.0-3.2); LYMPHOCYTES % 28.2 % (18.0-39.1); MEAN CORPUSCULAR HEMOGLOBIN 30.3 pg (28-32); MEAN CORPUSCULAR HGB CONC 32.4 g/dL (31-35); MEAN CORPUSCULAR VOLUME 93.5 fL (81-99); MONOCYTES # (AUTO) 0.5 (0.2-0.8); MONOCYTES % 13.5 % (4.4-11.3); NEUTROPHILS % 51.9 % (38.7-80.0); PLATELET COUNT 94 x10e3/uL (140-360); RED CELL DISTRIBUTION WIDTH 13.9 % (11.7-14.4); WHITE BLOOD COUNT 3.93 x10e3/uL (4.8-10.8)
[2023-05-03] MEDS: METOPROLOL TARTRATE 25 MG TAB PO SCH ×2 (06:30→18:03)
[2023-05-03 06:53] LABS: ALBUMIN 3.4 g/dL (3.5-5.0); ALBUMIN/GLOBULIN RATIO 0.9 (0.8-2.0); ANION GAP 13.6 mmol/L (8-16); BILIRUBIN,TOTAL 0.3 mg/dL (0.2-1.2); CREATININE, SERUM 1.45 mg/dL (0.72-1.25); POTASSIUM 3.6 mmol/L (3.5-5.1); TOTAL PROTEIN 7.1 g/dL (6.5-8.1)
[2023-05-03] MEDS: CYANOCOBALAMIN 100 MCG TAB PO SCH (09:00)
[2023-05-03] MEDS: FUROSEMIDE INJ 10 MG/ML 2 ML VIAL IV SCH ×2 (09:06→17:13)
[2023-05-03] MEDS: TAMSULOSIN HCL 0.4 MG CAP PO SCH (09:06)
[2023-05-03] MEDS: APIXAB 2.5 MG TABLET PO SCH ×2 (09:06→17:12)
[2023-05-03] MEDS: BISACODYL 5 MG TAB EC PO SCH (09:06)
[2023-05-03] MEDS: PANTOPRAZOLE SOD 40 MG TABEC PO SCH ×2 (09:06→17:12)
[2023-05-03] MEDS: OLANZAPINE 5 MG TAB PO SCH (09:06)
[2023-05-03] MEDS: CHOLECALCIFEROL 1,000 UNIT TAB PO SCH (09:06)
[2023-05-03] MEDS: MEMANTINE 10 MG TAB PO SCH ×2 (09:06→17:12)
[2023-05-03] MEDS ORDERED: AZITHROMYCIN 250 MG TAB PO SCH (20:30)
[2023-05-03] MEDS: MELATONIN 5 MG TABLET PO PRN (21:16)
[2023-05-03] MEDS: ATORVASTATIN 10 MG TAB PO SCH (21:35)
[2023-05-04] VITALS (7 sets, daily range): BP systolic 122–128; BP diastolic 66–77; PULSE 74–112; RESP 16–22; TEMP 97.6–98.3; O2SAT 95–98
[2023-05-04] MEDS: ALBUTEROL/IPRATROPIUM 3 ML NEB NEB SCH ×3 (01:13→12:29)
[2023-05-04] MEDS: METOPROLOL TARTRATE 25 MG TAB PO SCH (06:10)
[2023-05-04] MEDS: PANTOPRAZOLE SOD 40 MG TABEC PO SCH (07:45)
[2023-05-04] MEDS: BISACODYL 5 MG TAB EC PO SCH (08:10)
[2023-05-04] MEDS: OLANZAPINE 5 MG TAB PO SCH (08:10)
[2023-05-04] MEDS: APIXAB 2.5 MG TABLET PO SCH (08:10)
[2023-05-04] MEDS: MEMANTINE 10 MG TAB PO SCH (08:10)
[2023-05-04] MEDS: FUROSEMIDE INJ 10 MG/ML 2 ML VIAL IV SCH (08:10)
[2023-05-04] MEDS: TAMSULOSIN HCL 0.4 MG CAP PO SCH (08:10)
[2023-05-04] MEDS: CHOLECALCIFEROL 1,000 UNIT TAB PO SCH (08:10)
[2023-05-04] MEDS: CYANOCOBALAMIN 100 MCG TAB PO SCH (08:11)
[2023-05-04] MEDS ORDERED: FUROSEMIDE 20 MG TAB PO SCH (17:00)
== END 2023-05-04 12:37 | disposition home or self-care (01) | DRG 177 ==
LOC: ER 10:43 → ERHOLD 13:46 → MED/SURG2 17:11
PROVIDERS: ADMIT Family Medicine; ATTEND Family Medicine
DX: U07.1 COVID-19 (principal); G93.41 Metabolic encephalopathy; J12.82 Pneumonia due to coronavirus disease 2019; I13.0 Hypertensive heart and chronic kidney disease with heart failure and stage 1 through stage 4 chronic kidney disease, or unspecified chronic kidney disease; E22.2 Syndrome of inappropriate secretion of antidiuretic hormone; I50.22 Chronic systolic (congestive) heart failure; I48.0 Paroxysmal atrial fibrillation; Z79.01 Long term (current) use of anticoagulants; N18.9 Chronic kidney disease, unspecified; G20.A1 Parkinson's disease without dyskinesia, without mention of fluctuations; F02.80 Dementia in other diseases classified elsewhere, unspecified severity, without behavioral disturbance, psychotic disturbance, mood disturbance, and anxiety; E66.01 Morbid (severe) obesity due to excess calories; Z68.27 Body mass index [BMI] 27.0-27.9, adult; K21.9 Gastro-esophageal reflux disease without esophagitis; K22.0 Achalasia of cardia; R53.81 Other malaise; F31.9 Bipolar disorder, unspecified; F20.9 Schizophrenia, unspecified; Z85.46 Personal history of malignant neoplasm of prostate; Z79.899 Other long term (current) drug therapy; Z88.5 Allergy status to narcotic agent; Z88.8 Allergy status to other drugs, medicaments and biological substances
CPT/HCPCS: 36415; 70450; 71045; 80048; 80053; 81001; 82550; 83880; 84484; 85025; 87400; 93005; 93306; 94799; 99284; J0696; J1940; J7050; U0002